=== PATIENT | male | born 1965 | race Caucasian/White ===

== ENCOUNTER 2018-08-22 11:13 | Inpatient (IN) | payer MEDICAID ==
[~2018-08-22] VITALS: Ht 170.2 cm; Wt 81.6 kg
--- NOTE | 2018-08-22 11:13 | NUR ---
PT BIBA BLS TO ER BED 10
[2018-08-22 11:19] VITALS: BP 211/128
[2018-08-22] MEDS ORDERED: NACL 0.9% 1,000 ML IV SCH ×2 (11:35→17:50)
[2018-08-22] MEDS ORDERED: KETOROLAC 30 MG/ML VIAL IVP ONE (11:35)
--- NOTE | 2018-08-22 11:40 | NUR ---
PATIENT PRESENTS TO ED WITH c/o flu like symptoms---bodyaches, fever, chills, fatigue, chills pain to extremities, and dysuria with purulent urine as per pt x 8 days pt picked up from an urent care clinic today admits to be a diabetic and htn but non compliant with meds DENIES N/V/D; SKIN IS PINK/WARM/DRY; AAOX4 LUNGS CLEAR BL; HR EVEN AND REGULAR; PATIENT STATES PAIN OF 10/10 AT THIS TIME; VSS; PATIENT POSITIONED FOR COMFORT; HOB ELEVATED; BEDRAILS UP X2; BED DOWN. ER MD MADE AWARE OF PT STATUS.
[2018-08-22] MEDS ORDERED: KETOROLAC 30 MG/ML VIAL ONE (11:53)
--- NOTE | 2018-08-22 11:53 | NUR ---
CXR COMPLETED--LAB NOTIFIED BLOOD AT BEDSIDE DRAWN
[2018-08-22 12:29] LABS: BASOPHILS % (AUTO) 0.1 % (0.0-2.0); HEMATOCRIT 41.5 % (36-52); HEMOGLOBIN 14.3 g/dL (12.0-18.0); LYMPHOCYTES # (AUTO) 1.2 K/uL (2.0-11.5); LYMPHOCYTES % (AUTO) 5.2 % (20.5-51.1); MEAN CORPUSCULAR HEMOGLOBIN 32 pg (27-31); MEAN CORPUSCULAR HGB CONC 34 g/dL (33-37); MEAN CORPUSCULAR VOLUME 93.5 fL (80-94); MONOCYTES # (AUTO) 1.4 K/uL (0.8-1.0); NEUTROPHILS # (AUTO) 20.1 K/uL (1.8-7.7); NEUTROPHILS % (AUTO) 88.7 % (42.2-75.2); PLATELET COUNT (AUTO) 201 K/uL (140-450); RED BLOOD CELL COUNT(AUTO) 4.44 MIL/uL (4.20-6.10)
[2018-08-22 12:37] LABS: WHITE BLOOD COUNT (AUTO) 22.6 K/uL (4.8-10.8)
[2018-08-22 12:40] LABS: ANION GAP 18.1 (8-16); CARBON DIOXIDE 20.7 mmol/L (21-32); POTASSIUM 3.8 mmol/L (3.5-5.1)
[2018-08-22] MEDS ORDERED: NACL 0.9% 1,000 ML IV ONE (12:50)
[2018-08-22 12:52] LABS: ALBUMIN 3.1 g/dL (3.4-5.0)
[2018-08-22] MEDS ORDERED: LEVOFLOXACIN 500 MG/D5W PREMIX 100 ML IV ONE (12:55)
[2018-08-22 13:05] LABS: TOTAL BILIRUBIN 1.1 mg/dL (0.0-1.0)
[2018-08-22 13:09] LABS: APPEARANCE,URINE HAZY (CLEAR); BILIRUBIN,URINE NEGATIVE (NEGATIVE); BLOOD, URINE 2+ (NEGATIVE); COLOR,URINE YELLOW (YELLOW); LEUKOCYTE ESTERASE ,URINE 2+ (NEGATIVE); NITRITE, URINE POSITIVE (NEGATIVE); UGLUCOSE 3+ (NEGATIVE)
[2018-08-22 13:26] LABS: PROTHROMBIN TIME 11.1 secs (10.8-13.4)
[2018-08-22] MEDS: NACL 0.9% 1,000 ML IV SCH (13:54)
[2018-08-22] MEDS ORDERED: HYDROcodone/APAP 7.5/325 MG 1 TAB PO PRN (13:55)
[2018-08-22] MEDS ORDERED: ONDANSETRON 4 MG/2 ML VIAL IVP PRN (13:55)
[2018-08-22 14:39] LABS: BARBITURATE, URINE NEG. ng/ml (NEG <=200); BENZODIAZEPINE, URINE NEG. ng/mL (NEG <=200); CANNABINOID, URINE NEG. ng/mL (NEG <=50); COCAINE, URINE NEG. ng/mL (NEG <=300); OPIATE, URINE NEG. ng/mL (NEG <=2000); PHENCYCLIDINE SCREEN,URINE NEG. ng/mL (NEG <=25)
[2018-08-22 14:49] LABS: FREE T4 (FREE THYROXINE) 1.76 ng/dL (0.76-1.46); MAGNESIUM 1.9 mg/dL (1.8-2.4); PHOSPHORUS 1.8 mg/dL (2.5-4.9)
[2018-08-22] MEDS ORDERED: ENALAPRILAT 2.5 MG/2 ML VIAL IVP ONE ×2 (15:10→15:55)
[2018-08-22] MEDS ORDERED: ONDANSETRON 4 MG/2 ML VIAL IVP ONE (15:15)
--- NOTE | 2018-08-22 15:15 | NUR ---
EDMD MADE AWARE OF ELEVATED BP AND N/V, DR. SHARMA TO PLACE NEW ORDERS.
[2018-08-22 15:19] LABS: THYROID STIMULATING HORMONE 1.84 uIU/mL (0.34-3.74)
[2018-08-22] MEDS ORDERED: ONDANSETRON 4 MG/2 ML VIAL ONE (15:24)
[2018-08-22] MEDS: ACETAMINOPHEN 325 MG TAB PO PRN (16:13)
--- NOTE | 2018-08-22 16:31 | NUR ---
PT UP TO RESTROOM
--- NOTE | 2018-08-22 16:40 | NUR ---
AMBULATORY WITH STEADY GAIT TO AND FROM RESTROOM---CHARGE IN TELE OKAY TO RECEIVE PT WITH LASTEST VITALS.
[2018-08-22 16:55] VITALS: BP 135/89
--- NOTE | 2018-08-22 16:55 | NUR ---
RECEIVED PT FROM EMERGENCY ROOM NURSE FOR CONTINUITY OF CARE. PT IN STABLE CONDITION. RESPIRATIONS EVEN AND UNLABORED. IV INTACT AND PATENT. BED IN LOW POSITION. CALL LIGHT AT BEDSIDE. WILL CONTINUE TO MONITOR.
--- NOTE | 2018-08-22 16:58 | NUR ---
Pt transferred to Tele via [facility] ; ROOM 122-B REPORT GIVEN TO JOSÉ ANTONIO ROQUE
--- NOTE | 2018-08-22 18:15 | NUR ---
PT LYING IN BED SLEEPING AT THIS TIME. RESPIRATIONS EVEN AND UNLABORED. BED IN LOW POSITION. CALL LIGHT AT BEDSIDE. WILL CONTINUE TO MONITOR.
[2018-08-22 18:16] LABS: ANION GAP 16.3 (8-16); CARBON DIOXIDE 22.4 mmol/L (21-32); CREATININE 0.8 mg/dL (0.7-1.3); POTASSIUM 3.7 mmol/L (3.5-5.1)
[2018-08-22] MEDS: PIPER/TAZO 3.375GM/D5W PREMIX 50 ML IV SCH (18:56)
[2018-08-22] MEDS ORDERED: DEXTROSE 50% 50 ML SYR IVP PRN (19:20)
--- NOTE | 2018-08-22 19:41 | NUR ---
GAVE REPORT TO MULE DRIVER NURSE FOR CONTINUITY OF CARE. PT IN STABLE CONDITION.
--- NOTE | 2018-08-22 19:42 | NUR ---
RECEIVED BEDSIDE REPORT FROM DAY SHIFT RN, PATIENT IN STABLE CONDITION, RESTING IN BED WITH NO SIGNS OF DISTRESS ON RA.
[2018-08-22 20:00] VITALS: BP 149/86
--- NOTE | 2018-08-22 21:42 | NUR ---
USING MYOMO HEAD PAPER TESTER # [id number] I EXPLAINED SCHEDULED MEDICATIONS TO PATIENT. PATIENT AGREED TO BLOOD GLUCOSE CHECK. PATIENT ALSO AGREED TO ADMINISTRATION OF INSULIN, HEPARIN, AND COLACE. PATIENT STATES THAT HE DOES HAVE PAIN BUT DOES NOT WANT ANY MEDICINE FOR PAIN. PATIENT REQUESTS TO USE THE BATHROOM BEFORE TAKING MEDICATIONS. WILL ADMINISTER AT THAT TIME.
[2018-08-22] MEDS: DOCUSATE SODIUM 100 MG GELCAP PO SCH (21:43)
[2018-08-22] MEDS: BLOOD GLUCOSE MONITORING 1 DEV DEV FS SCH (21:53)
[2018-08-22] MEDS: INSULIN LISPRO SLIDING SCALE 100 UNITS/ML VIAL SUBQ PRN (21:56)
--- NOTE | 2018-08-22 22:00 | NUR ---
PATIENT STATED HE HAD DIARRHEA WHEN HE USED THE BATHROOM. COLACE WAS NOT ADMINISTERED. USING Laser View # [id number] I EXPLAINED THAT WE WOULD HOLD THE COLACE AND THAT NEXT TIME HE HAS DIARRHEA TO LET ME SEE IT. PATIENT STATED THAT HE HAD PAIN IN HIS FEET AND SHOULDERS THAT IS AN 8/10 WHEN LAYING STILL NAD A 10/10 WHEN AMBULATING TO THE BATHROOM. I EXPLAINED THAT WE CAN GIVE HIM MEDICATION FOR THE PAIN BUT HE STATED HE DID NOT WANT TO TAKE ANY PAIN MEDICATION.
--- NOTE | 2018-08-22 22:53 | NUR ---
PATIENT HAD A LOOSE SMALL STOOL. PATIENT STATES HE HAS HAD DIARRHEA FOR 10 DAYS. WILL INFORM DOCTOR.
--- NOTE | 2018-08-22 23:26 | NUR ---
MADE DR. MORGAN AWARE THAT PATIENT HAS HAD DIARRHEA FOR 10 DAYS. SHE WILL ORDER C-DIFF STOOL CULTURE. WILL INFORM PATIENT TO NOTIFY US PRIOR TO NEXT BOWEL MOVEMENT. Addendum: 08/23/18 at 0325 by Dora Altamirano RN DR. WALLACE, ELANIE MORGAN
[2018-08-23] VITALS: BP 159/95
--- NOTE | 2018-08-23 | NUR ---
PATIENT SLEEPING. VITALS STABLE. PATIENT ADMITS TO HAVING PAIN BUT IS REFUSING TO TAKE ANY PAIN MEDICATIONS. WILL CONTINUE TO MONITOR
[2018-08-23] MEDS: PIPER/TAZO 3.375GM/D5W PREMIX 50 ML IV SCH ×4 (00:42→17:00)
--- NOTE | 2018-08-23 02:30 | NUR ---
PATIENT AMBULATED TO BATHROOM, PAINFULL TO URINATE AND TO AMBULATE, BUT PATIENT IS STILL REFUSING PAIN MEDICATIONS.
[2018-08-23 04:13] LABS: MEAN CORPUSCULAR HEMOGLOBIN 32 pg (27-31); PLATELET COUNT (AUTO) 188 K/uL (140-450); RED CELL DISTRIBUTION WIDTH 12.9 % (11.6-13.7)
[2018-08-23 04:18] LABS: HEMATOCRIT 38.4 % (36-52); HEMOGLOBIN 13.1 g/dL (12.0-18.0); MEAN CORPUSCULAR HGB CONC 34 g/dL (33-37); MEAN CORPUSCULAR VOLUME 93.6 fL (80-94); RED BLOOD CELL COUNT(AUTO) 4.11 MIL/uL (4.20-6.10); WHITE BLOOD COUNT (AUTO) 24.9 K/uL (4.8-10.8)
[2018-08-23 04:22] LABS: ANION GAP 15.2 (8-16); CARBON DIOXIDE 21.4 mmol/L (21-32); CREATININE 0.8 mg/dL (0.7-1.3); POTASSIUM 3.6 mmol/L (3.5-5.1)
[2018-08-23 04:25] LABS: MAGNESIUM 1.8 mg/dL (1.8-2.4); PHOSPHORUS 2.9 mg/dL (2.5-4.9)
[2018-08-23 04:27] LABS: CHOL/HDL RATIO 2.5 (1-4.5)
[2018-08-23 04:58] LABS: BASOPHILS % (MANUAL) 0 % (0-2); EOSINOPHILS % (MANUAL) 0 % (0-4); LYMPHOCYTES % (MANUAL) 6 % (20-46); MONOCYTES % (MANUAL) 6 % (5-12)
[2018-08-23] MEDS: ACETAMINOPHEN 325 MG TAB PO PRN ×2 (06:20→16:10)
[2018-08-23] MEDS: NACL 0.9% 1,000 ML IV SCH ×3 (06:25→16:19)
--- NOTE | 2018-08-23 06:30 | NUR ---
PATIENT HAS A FEVER, ADMINISTERED PRN MEDICATION. WILL ENDORSE TO DAY SHIFT RN TO FOLLOW UP ON ANTI-PYRETIC.
[2018-08-23] MEDS: LISINOPRIL 10 MG TAB PO SCH (06:38)
[2018-08-23] MEDS: BLOOD GLUCOSE MONITORING 1 DEV DEV FS SCH ×4 (06:39→20:25)
--- NOTE | 2018-08-23 07:14 | NUR ---
GAVE BEDSIDE REPORT TO DAY SHIFT RN. PATIENT ENDORSED IN STABLE CONDITION.
--- NOTE | 2018-08-23 07:15 | NUR ---
PT REPORT RECEIVED FROM FAMILY DAY CARE PROVIDER NURSE AT BEDSIDE. PT IS AWAKE LYING IN BED, NO S/S OF ACUTE DISTRESS OR SOB NOTED. PT IS ON ROOM AIR, SKIN INTACT. IV SITE ON THE L AC, 18 G, INFUSING NS 125 ML/HR. PT IS ON A CCHO DIET. PT IS AMBULATORY AND NOT CONSIDERED A FALL RISK. CALL LIGHT IS WITHIN REACH. WILL CONTINUE TO MONITOR.
[2018-08-23 08:00] VITALS: BP 142/99
--- NOTE | 2018-08-23 08:30 | NUR ---
PATIENT HAS BEEN SCREENED AND CATEGORIZED HIGH NUTRITION RISK. PATIENT WILL BE SEEN WITHIN 1-2 DAYS OF ADMISSION. 08/23/18-08/24/[address]
--- NOTE | 2018-08-23 09:10 | NUR ---
AM MEDS ADMINISTERED, PT TOLERATED WELL. PT'S IS VISITING AT BEDSIDE.
[2018-08-23] MEDS: PANTOPRAZOLE 40 MG INJ VIAL IVP SCH (09:11)
[2018-08-23] MEDS: DOCUSATE SODIUM 100 MG GELCAP PO SCH (09:12)
[2018-08-23] MEDS: SODIUM PHOS / POTASSIUM PHOS 1 PKT PDR PO SCH ×2 (09:15→16:37)
[2018-08-23] MEDS ORDERED: ALBUTEROL SULFATE/IPRATROPIU 3 ML SOL IH PRN (11:45)
[2018-08-23] MEDS ORDERED: LORazepam 1 MG TAB PO SCH (11:47)
--- NOTE | 2018-08-23 11:49 | NUR ---
PT'S BP IS 182/100 AT THIS TIME. O2 SAT IS 98%, BUT HE IS FEELING SHORT OF BREATH AND ANXIOUS. DR SALINAS NOTIFIED. Addendum: 08/23/18 at 1235 by Macy Jefferson RN O2 NC PROVIDED ON 2 L/MIN, AND GIVEN ATIVAN PER MD ORDER. WILL CONTINUE TO MONITOR PT. Addendum: 08/23/18 at 1620 by Macy Jefferson RN AT 13:30 PT'S BP WAS 162/88.
[2018-08-23] MEDS: INSULIN LISPRO SLIDING SCALE 100 UNITS/ML VIAL SUBQ PRN ×3 (11:55→20:33)
[2018-08-23 12:00] VITALS: BP 181/98
--- NOTE | 2018-08-23 13:45 | NUR ---
08/23/18 RD INITIAL ASSESSMENT COMPLETED PLEASE REFER TO NUTRITION ASSESSMENT UNDER CARE ACTIVITY FOR ESTIMATED NUTRITIONAL NEEDS. 1. CONTINUE CCHO 60 GM DIET TOLERATED 2. RD PROVIDED NUTRITION EDUCATION ON HIGH FIBER DIET AND CONSISTENT CARBOHYDRATE COUNTING 3. RD TO FOLLOW-UP 3-5 DAYS, MODERATE RISK WILFREDO DE JESUS, RD
[2018-08-23] MEDS: ALBUTEROL SULFATE/IPRATROPIU 3 ML SOL IH SCH ×2 (15:02→19:48)
--- NOTE | 2018-08-23 15:09 | NUR ---
PT GETTING A BREATHING TX AT THIS TIME
--- NOTE | 2018-08-23 15:17 | NUR ---
DR SALINAS NOTIFIED OF PT'S BLOOD CULTURES POSITIVE FOR GRAM+ COCCI CLUSTERS.
[2018-08-23 16:00] VITALS: BP 163/103
--- NOTE | 2018-08-23 16:15 | NUR ---
PT'S BP IS 163/103 AT THIS TIME, AND TEMP IS 101.8. DR SALINAS IS AWARE. COOLING MEASURES ARE IN PLACE, AND TYLENOL WAS ADMINISTERED. COOLING DOWN THE ROOM TEMP. PT'S IS AT BEDSIDE. WILL CONTINUE TO MONITOR PT.
--- NOTE | 2018-08-23 17:53 | NUR ---
AT THIS TIME, BP IS 163/100 AND TEMP IS 100.0. DR AYALA IS AWARE AND IS GOING TO PLACE ORDERS TO LOWER PT'S BP.
[2018-08-23] MEDS ORDERED: LISINOPRIL 10 MG TAB PO SCH (18:10)
--- NOTE | 2018-08-23 18:15 | NUR ---
ONE EXTRA DOSE OF LISINOPRIL, AND PYRIDIUM WERE ADMINISTERED PER MD ORDER FOR PT'S ELEVATED BP AND DYSURIA. DR AYALA SPOKE TO THE PT ABOUT IMPORTANCE OF PAIN MANAGEMENT AND HOW UNCONTROLLED PAIN CONTRIBUTES TO HIGH BP. (PT HAS BEEN REFUSING PAIN MEDS). PT VERBALIZED UNDERSTANDING.
[2018-08-23] MEDS: PHENAZOPYRIDINE 100 MG TAB PO SCH (18:20)
--- NOTE | 2018-08-23 18:53 | NUR ---
RECHECKED PT'S BP AND TEMP. TEMP IS NORMAL AT 98.4 (ORAL), BP IS 179/104. PT WAS ADMINISTERED A DOSE OF LISINOPRIL WITHIN THE LAST HOUR, ORDERED BY DR AYALA. WILL ENDORSE CLOSE MONITORING OF BP TO THE ACCOUNTING ASSISTANT NURSE.
--- NOTE | 2018-08-23 19:15 | NUR ---
PT ENDORSED TO DIRECTOR GEOTHERMAL OPERATIONS NURSE IN STABLE CONDITION.
--- NOTE | 2018-08-23 19:16 | NUR ---
RECEIVED BEDSIDE REPORT FROM DAY SHIFT RN. PATIENT RESTING IN BED. NO SIGNS OF DISTRESS ON RA. IV RUNNING NS AT 125 ML/HR, BED LOW, SAFETY PRECAUTION IN PLACE, CALL LIGHT IN REACH.
[2018-08-23 20:00] VITALS: BP 155/98
--- NOTE | 2018-08-23 20:36 | NUR ---
ADMINISTERED SCHEDULED MEDICATIONS. PATIENT TOLERATED WELL. PATIENT APPEARS UNCOMFORTABLE AND ADMITS T PAIN BUT REFUSES TO TAKE PAIN MEDIATIONS. WILL CONTINUE TO OFFER PAIN RELIEF, DISTRACTION, AND PROVIDE FOR COMFORT.
--- NOTE | 2018-08-23 22:58 | NUR ---
PATIENT SLEEPING. NO SIGNS OF DISTRESS ON RA. WILL CONTINUE TO MONITOR.
[2018-08-24] VITALS: BP 168/95
[2018-08-24] MEDS: PIPER/TAZO 3.375GM/D5W PREMIX 50 ML IV SCH ×5 (00:03→23:17)
[2018-08-24] MEDS: NACL 0.9% 1,000 ML IV SCH ×2 (00:03→09:05)
--- NOTE | 2018-08-24 00:04 | NUR ---
ADMINISTERED SCHEDULED MEDICATIONS. PATIENT LOOKS IN EXTREME DISCOMFORT. BODY ACHES ARE GETTING WORSE. RIGHT LEG HURTS AND IS HARD TO USE WHEN WALKING. BOTH UPPER EXTREMITIES ARE STIFF AND SORE. PATIENT STILL REFUSING PAIN MEDICATION.
--- NOTE | 2018-08-24 03:15 | NUR ---
SPOKE TO DR. REEDER ABOUT ELEVATED BP 168/95. PATIENT IS GETTING 125 ML/HR AND IS IN PAIN BUT IS REFUSING TO TAKE PAIN MEDICATIONS. DR. REEDER CHANGED RATE OF FLUIDS TO 90 ML/HR. WILL RECHECK VITALS IN ONE HOUR AND REPORT BACK.
[2018-08-24 04:00] VITALS: BP 176/11
[2018-08-24] MEDS ORDERED: KETOROLAC 30 MG/ML VIAL IM PRN ×2 (04:30→12:41)
--- NOTE | 2018-08-24 04:30 | NUR ---
RECHECKED BP. IT IS NOW 176/111, DR. REEDER AWARE. SPOKE WITH THE PATIENT AND EXPLAINED THE BENEFITS OF CONTROLLING PAIN AND THAT PAIN MAY BE AFFECTING HIS BP. PATIENT AGREED TO TAKE PAIN MEDICATIONS. TO PLACE NEW ORDERS.
--- NOTE | 2018-08-24 04:51 | NUR ---
ADMINISTERED PRN PAIN MEDICATION. WILL RECHECK PAIN AND BP IN 30 MINUTES.
--- NOTE | 2018-08-24 05:30 | NUR ---
BP STILL ELEVATED. WILL GIVE 0900 DOES OF LISINOPRIL AND RECHECK BP.
[2018-08-24] MEDS: MORPHINE SULFATE 2 MG/ML SYR IVP PRN (06:17)
[2018-08-24] MEDS: LISINOPRIL 10 MG TAB PO SCH ×2 (06:17→08:39)
--- NOTE | 2018-08-24 06:30 | NUR ---
BP REMAINS ELEVATED. WILL GIVE PRN ANTIHYPERTENSIVE.
[2018-08-24 06:33] LABS: CHLAMYDIA TRACHOMATIS AMP DNA Negative (Negative)
[2018-08-24] MEDS: BLOOD GLUCOSE MONITORING 1 DEV DEV FS SCH ×4 (06:52→20:39)
[2018-08-24] MEDS: ENALAPRILAT 2.5 MG/2 ML VIAL IVP PRN ×2 (06:55→12:35)
[2018-08-24] MEDS: INSULIN LISPRO SLIDING SCALE 100 UNITS/ML VIAL SUBQ PRN ×3 (06:55→17:23)
[2018-08-24 07:03] LABS: BASOPHILS % (AUTO) 0.2 % (0.0-2.0); EOSINOPHILS % (AUTO) 0.1 % (0.0-4.0); HEMATOCRIT 37.9 % (36-52); HEMOGLOBIN 13.3 g/dL (12.0-18.0); LYMPHOCYTES # (AUTO) 1.4 K/uL (2.0-11.5); MEAN CORPUSCULAR HEMOGLOBIN 33 pg (27-31); MEAN CORPUSCULAR HGB CONC 35 g/dL (33-37); MEAN CORPUSCULAR VOLUME 93.7 fL (80-94); MONOCYTES # (AUTO) 1.2 K/uL (0.8-1.0); MONOCYTES % (AUTO) 6.3 % (1.7-9.3); NEUTROPHILS # (AUTO) 17.1 K/uL (1.8-7.7); NEUTROPHILS % (AUTO) 86.4 % (42.2-75.2); PLATELET COUNT (AUTO) 200 K/uL (140-450); RED BLOOD CELL COUNT(AUTO) 4.05 MIL/uL (4.20-6.10); RED CELL DISTRIBUTION WIDTH 12.7 % (11.6-13.7); WHITE BLOOD COUNT (AUTO) 19.8 K/uL (4.8-10.8)
[2018-08-24] MEDS: ALBUTEROL SULFATE/IPRATROPIU 3 ML SOL IH SCH ×3 (07:16→19:00)
--- NOTE | 2018-08-24 07:17 | NUR ---
SATURATION 93-94% ON ROOM AIR POST HHN THERAPY AND RESPIRATORY DRUG PLACED ON SUUPLEMENTAL OXYGEN AT 2 LPM VIA NC
--- NOTE | 2018-08-24 07:30 | NUR ---
GAVE BEDSIDE REPORT TO DAY SHIFT RN. ENDORSED BP RECHECK TO DAY SHIFT. DOCTORS WERE ROUNDING. PATIENT C/0 BLADDER PAIN, DAY SHIT RN TO DO BLADDER SCAN.
--- NOTE | 2018-08-24 07:31 | NUR ---
RECEIVED REPORT FROM ADJUNCT INSTRUCTOR OF WOMEN'S STUDIES NURSE. PT REPORTS PAIN ON URINATION BUT NOT OTHER COMPLAINTS OR OBVIOUS SIGNS OF DISTRESS. IV SITE INTACT AND ASYSMPTOMATIC.
[2018-08-24 07:38] LABS: ANION GAP 14.1 (8-16); CARBON DIOXIDE 22.1 mmol/L (21-32); CREATININE 0.7 mg/dL (0.7-1.3); POTASSIUM 3.2 mmol/L (3.5-5.1)
[2018-08-24 07:50] LABS: MAGNESIUM 1.8 mg/dL (1.8-2.4); PHOSPHORUS 3.1 mg/dL (2.5-4.9)
[2018-08-24 08:00] VITALS: BP 140/97
[2018-08-24] MEDS: DOCUSATE SODIUM 100 MG GELCAP PO SCH ×3 (08:38→20:39)
[2018-08-24] MEDS: PANTOPRAZOLE 40 MG INJ VIAL IVP SCH (08:39)
[2018-08-24] MEDS: SODIUM PHOS / POTASSIUM PHOS 1 PKT PDR PO SCH (08:39)
[2018-08-24] MEDS: PHENAZOPYRIDINE 100 MG TAB PO SCH ×3 (08:45→17:17)
--- NOTE | 2018-08-24 09:45 | NUR ---
PT VOIDED IN THE URINAL, 150ML OUTPUT. CHECKED RESIDUAL URINE WITH BLADDER SCANNER, PT STILL HAS ABOUT 382ML. MADE DR SALINAS AWARE. NO NEW ORDERS AT THIS TIME.
--- NOTE | 2018-08-24 10:53 | NUR ---
PT LAYING IN BED WITH FAMILY AT BEDSIDE. PT AND FAMILY DENY ANY REQUESTS FOR ANYTHING AT THIS TIME. NO COMPLAINTS OF PAIN BY PATIENT AND NO OBVIOUS VISIBLE SIGNS OF ACUTE DISTRESS.
[2018-08-24 11:54] VITALS: BP 183/112
[2018-08-24] MEDS: ACETAMINOPHEN 325 MG TAB PO PRN ×2 (12:34→20:37)
[2018-08-24] MEDS ORDERED: IBUPROFEN 400 MG TAB PO PRN (12:55)
[2018-08-24] MEDS ORDERED: POTASSIUM CHLORIDE 10 MEQ TABER PO SCH (13:00)
--- NOTE | 2018-08-24 14:26 | NUR ---
PT SITTING UP IN BED WITH NO S/S OF DISTRESS, HAD BREATHING TREATMENT AN HOUR AGO. NO COMPLAINTS OF PAIN OR ANY OTHER REQUESTS AT THIS TIME.
[2018-08-24] MEDS ORDERED: amLODIPine 5 MG TAB PO SCH (14:30)
--- NOTE | 2018-08-24 15:50 | NUR ---
PT LAYING IN BED DENIES REQUEST FOR ANYTHING AT THIS TIME WITH NO OBVIOUS SIGNS OF DISTRESS. PATIENT STATES HE HAS PAIN DURING URINATION BUT DENIES NUMERIC RATING TO PAIN AND SHAKES HIS HEAD NO TO ANY MEDICATION OR NEED FOR PAIN MANAGEMENT.
[2018-08-24 15:52] VITALS: BP 157/90
[2018-08-24] MEDS ORDERED: VANCOMYCIN PER PHARMACY MC PRN (16:35)
[2018-08-24] MEDS: metFORMIN 500 MG TAB PO SCH (17:17)
[2018-08-24] MEDS: VANCOMYCIN 1GM/DEXT 5% PREMIX 200 ML IV SCH (17:18)
--- NOTE | 2018-08-24 19:25 | NUR ---
ENDORSED PT TO PACKAGE LIFT OPERATOR RN, PT C/O DIARRHEA, PROVIDED BEDSIDE COMMODE. PT IN STABLE CONDITION.
--- NOTE | 2018-08-24 19:26 | NUR ---
REPORT RECEIVED FROM AM NURSE. PT AWAKE, ALERT AND ORIENTED X4. BREATHING UNLABORED. PT C/O DIARRHEA AND RLE PAIN WHILE AMBULATING. PT REFUSING PAIN MEDICATIONS. BEDSIDE COMMODE IN ROOM. FAMILY AT BEDSIDE. LT AC 18G INTACT. PT HAS FEVER OF 100.5, WILL MEDICATE. SKIN WARM, DRY AND INTACT. CALL LIGHT WITHIN REACH. BED IN LOW POSITION. SAFETY PRECAUTIONS IN PLACE. ALL NEEDS MEET AT THIS TIME.
[2018-08-24 20:10] VITALS: BP 155/95
--- NOTE | 2018-08-24 20:15 | NUR ---
CRITICAL LAB VALUE CALLED IN FOR MRSA OF THE NARES AND URINE. MD NOTIFIED, AWAITING ORDERS
--- NOTE | 2018-08-24 20:37 | NUR ---
TYLENOL GIVEN FOR TEMP OF 100.5
[2018-08-24] MEDS ORDERED: MUPIROCIN CA NASAL 2% 1GM TUBE NS SCH (21:00)
[2018-08-24] MEDS ORDERED: CHLORHEXADINE GLUC 2% CLOTH TP SCH (21:00)
--- NOTE | 2018-08-24 21:37 | NUR ---
REASSESSED PT TEMP. 99.3 AT THIS TIME
--- NOTE | 2018-08-24 22:30 | NUR ---
PT SLEEPING IN BED, EASILY AROUSABLE. NO C/O OF PAIN. NO VISIBLE SIGNS OF DISTRESS.
[2018-08-25 00:06] VITALS: BP 121/78
[2018-08-25] MEDS: VANCOMYCIN 1GM/DEXT 5% PREMIX 200 ML IV SCH ×2 (00:12→08:48)
--- NOTE | 2018-08-25 00:12 | NUR ---
BRIAN GAMEZ AND RUNNING. PT TOLERATING WELL.
--- NOTE | 2018-08-25 00:45 | NUR ---
PT AWAKE, LAYING IN BED. NO C/O OF DISCOMFORT. RESPIRATIONS EVEN, UNLABORED AND WNL.
[2018-08-25] MEDS: NACL 0.9% 1,000 ML IV SCH ×2 (02:09→22:56)
--- NOTE | 2018-08-25 02:15 | NUR ---
PT CONSTANTLY GETTING UP TO USE THE RESTROOM. NO S/S OF DISTRESS NOTED. WILL CONTINUE TO MONITOR.
--- NOTE | 2018-08-25 04:15 | NUR ---
PT SLEEPING BUT AROUSABLE. NO S/S OF DISTRESS NOTED. NO C/O PAIN. NO SOB. AFEBRILE. WILL CONTINUE TO MONITOR.
[2018-08-25] MEDS ORDERED: KETOROLAC 30 MG/ML VIAL IVP SCH (05:30)
--- NOTE | 2018-08-25 05:31 | NUR ---
TORADOL GIVEN FOR PAIN. PT TOLERATED WELL.
[2018-08-25] MEDS: BLOOD GLUCOSE MONITORING 1 DEV DEV FS SCH ×4 (06:12→20:32)
[2018-08-25] MEDS: INSULIN LISPRO SLIDING SCALE 100 UNITS/ML VIAL SUBQ PRN ×4 (06:13→20:39)
[2018-08-25] MEDS: PIPER/TAZO 3.375GM/D5W PREMIX 50 ML IV SCH ×2 (06:17→11:59)
--- NOTE | 2018-08-25 06:17 | NUR ---
GRACIELA HUNG AND RUNNING. PT TOLERATING WELL. BS 251. 9 UNITS OF HUMALOG GIVEN.
[2018-08-25 06:44] LABS: BASOPHILS % (AUTO) 0.1 % (0.0-2.0); EOSINOPHILS % (AUTO) 0.1 % (0.0-4.0); HEMATOCRIT 38.7 % (36-52); HEMOGLOBIN 13.1 g/dL (12.0-18.0); LYMPHOCYTES % (AUTO) 5.9 % (20.5-51.1); MEAN CORPUSCULAR HEMOGLOBIN 32 pg (27-31); MEAN CORPUSCULAR HGB CONC 34 g/dL (33-37); MEAN CORPUSCULAR VOLUME 93.9 fL (80-94); MONOCYTES # (AUTO) 1.2 K/uL (0.8-1.0); NEUTROPHILS # (AUTO) 14.7 K/uL (1.8-7.7); NEUTROPHILS % (AUTO) 86.9 % (42.2-75.2); PLATELET COUNT (AUTO) 223 K/uL (140-450); RED BLOOD CELL COUNT(AUTO) 4.13 MIL/uL (4.20-6.10)
[2018-08-25 06:55] LABS: ANION GAP 13.4 (8-16); CARBON DIOXIDE 23.1 mmol/L (21-32); CREATININE 0.8 mg/dL (0.7-1.3); POTASSIUM 3.5 mmol/L (3.5-5.1)
[2018-08-25] MEDS: ALBUTEROL SULFATE/IPRATROPIU 3 ML SOL IH SCH ×3 (07:00→20:15)
[2018-08-25 07:07] LABS: MAGNESIUM 2.1 mg/dL (1.8-2.4); PHOSPHORUS 3.2 mg/dL (2.5-4.9)
--- NOTE | 2018-08-25 07:27 | NUR ---
REPORT GIVEN TO AM NURSE AT BEDSIDE. PT IN STABLE CONDITION.
--- NOTE | 2018-08-25 07:30 | NUR ---
RECEIVED BEDSIDE REPORT FROM COMMISSARY OFFICER NURSE. PT IN STABLE CONDITION, AAOX4. RESPIRATION EVEN AND UNLABORED IN ROOM AIR. IV NOTED TO THE LEFT AC, 18G., PATENT AND ASYMPTOMATIC. ALL SAFETY MEASURES IN PLACE. BED IN LOWEST POSITION. CALL LIGHT WITHIN REACH. WILL CONTINUE TO MONITOR.
[2018-08-25 08:00] VITALS: BP 151/94
--- NOTE | 2018-08-25 08:01 | NUR ---
VITALS TAKEN, POC DISCUSSED, PT VERBALIZED UNDERSTANDING.
--- NOTE | 2018-08-25 08:27 | NUR ---
PATIENT HAD REFUSED BREATHING TX. SAID HE WAS NOT FEELING ANY SOB OR LIKE HE NEEDED HHN. PATIENT SOUND CLEAR AND DID NOT LOOK ANY DISTRESS. WILL CONTINUE TO MONITOR PATIENT
[2018-08-25] MEDS: PHENAZOPYRIDINE 100 MG TAB PO SCH ×3 (08:47→17:18)
[2018-08-25] MEDS: PANTOPRAZOLE 40 MG INJ VIAL IVP SCH (08:47)
[2018-08-25] MEDS: LISINOPRIL 10 MG TAB PO SCH (08:47)
[2018-08-25] MEDS: DOCUSATE SODIUM 100 MG GELCAP PO SCH ×3 (08:48→21:00)
[2018-08-25] MEDS: metFORMIN 500 MG TAB PO SCH ×2 (08:48→16:36)
[2018-08-25] MEDS ORDERED: amLODIPine 5 MG TAB PO SCH (09:00)
[2018-08-25] MEDS: MUPIROCIN CA NASAL 2% 1GM TUBE NS SCH (09:04)
[2018-08-25] MEDS: CHLORHEXADINE GLUC 2% CLOTH TP SCH (09:45)
--- NOTE | 2018-08-25 12:20 | NUR ---
PT HAD LUNCH, RESTING IN BED, NO S/S OF ACUTE DISTRESS IN ROOM AIR.
[2018-08-25] MEDS: ENALAPRILAT 2.5 MG/2 ML VIAL IVP PRN (12:50)
--- NOTE | 2018-08-25 13:19 | NUR ---
PATIENT REFUSED BREATHING TX, SAID HE DOES NOT FEEL ANY SOB, PATIENT DOES NOT LOOK IN ANY RESPIRATORY DISTRESS, WILL CONTINUE TO MONITOR
[2018-08-25 16:00] VITALS: BP 176/108
[2018-08-25] MEDS ORDERED: hydrALAZINE 20 MG/ML VIAL IVP SCH (16:15)
[2018-08-25] MEDS: VANCOMYCIN 1,250 MG in DEXTROSE 5% 250 ML IV SCH (17:17)
--- NOTE | 2018-08-25 17:55 | NUR ---
NOTIFIED TO MD AYALA, PT BP 169/102, HR 114 AFTER ADMINISTERING HYDRALAZINE 5 MG IVP.PT ALSO C/O OF HAVING CHILLS AND SHIVERING AND STATES HE FEELS HOT LATER. TEMPERATURE 98.9 ORAL. ORDERED TYLENOL AND PROVIDE MORE BLANKETS. WILL CONTINUE TO MONITOR.
[2018-08-25] MEDS: ACETAMINOPHEN 325 MG TAB PO PRN (17:59)
--- NOTE | 2018-08-25 18:19 | NUR ---
RENAL US DONE AT BEDSIDE. WILL CONTINUE TO MONITOR.
--- NOTE | 2018-08-25 18:50 | NUR ---
US KIDNEY DONE, PT STARTING EATING DINNER. INSULIN 3 UNITS GIVEN FOR COVERAGE.
--- NOTE | 2018-08-25 19:00 | NUR ---
RECEIVED PATIENT ON ROOM AIR. FAMILY AT BEDSIDE. PATIENT EATING DINNER, WOULD LIKE TO TAKE BREATHING TREATMENT AFTER MEAL. WILL RETURN AT LATER TIME FOR BREATHING TREATMENT.
--- NOTE | 2018-08-25 19:17 | NUR ---
GAVE ENDORSEMENT TO DISABILITY RATER NURSE. PT IS STABLE AT THIS TIME.
--- NOTE | 2018-08-25 19:18 | NUR ---
RECEIVED BEDSIDE REPORT FROM DAY SHIFT NURSESTEPHEN. PT IN STABLE CONDITION. RESPIRATION EVEN AND UNLABORED IN ROOM AIR. IV SITE ON THE LEFT AC, 18G., RUNNING NS @50MLS/HR. PATENT AND ASYMPTOMATIC. ALL SAFETY MEASURES IN PLACE. BED IN LOWEST POSITION. CALL LIGHT WITHIN REACH. WILL CONTINUE TO MONITOR.
--- NOTE | 2018-08-25 20:03 | NUR ---
HEPARIN GIVEN MD ORDERED. PT TOLERATED WELL. COLACE HELD DUE TO SEVERE DIARRHEA. BS CHECKED, 255, WILL ADMINISTER INSULIN ACCORDING TO SLIDING SCALE.
--- NOTE | 2018-08-25 20:22 | NUR ---
RECEIVED PATIENT ON ROOM AIR, PULSE OX SAT 98%. BREATH SOUNDS CLEAR. PATIENT REFUSING BREATHING TREATMENT AT THIS TIME. RN NOTIFIED. NO RESPIRATORY DISTRESS NOTED. WILL CONTINUE TO MONITOR.
--- NOTE | 2018-08-25 20:39 | NUR ---
HUMALOG INSULIN 9 UNITS GIVEN MD ORDERED. PT TOLERATED WELL. BED IN LOW POSITION, CALL LIGHT WITHIN REACH. WILL CONTINUE TO MONITOR.
--- NOTE | 2018-08-25 23:00 | NUR ---
USING REHABILITATION CENTER MANAGER SYSTEM, #[id number], PT C/O SEVERE PAIN, 01/[address] WALLACE AWARE. WILL MEDICATE.
[2018-08-26] VITALS: BP 140/88
[2018-08-26] MEDS ORDERED: KETOROLAC 30 MG/ML VIAL IM SCH
--- NOTE | 2018-08-26 | NUR ---
VS CHECKED, WITHIN PT'S BASELINE. VANCOMYCIN IVPB AND TORADOL IV PUSH GIVEN MD ORDERED. PT TOLERATED WELL. WILL CONTINUE TO MONITOR.
[2018-08-26 01:51] VITALS: BP 140/88
--- NOTE | 2018-08-26 02:32 | NUR ---
PT SLEEPING IN BED. NO S/S OF SOB NOTED. BREATHING EVEN AND UNLABORED. BED IN LOW POSITION. CALL LIGHT WITHIN REACH.
--- NOTE | 2018-08-26 04:05 | NUR ---
PT SLEEPING IN BED COMFORTABLY. PT IN STABLE CONDITION. NO S/S OF ANY DISCOMFORT. WILL CONTINUE TO MONITOR.
[2018-08-26] MEDS: BLOOD GLUCOSE MONITORING 1 DEV DEV FS SCH ×4 (05:31→20:44)
--- NOTE | 2018-08-26 05:31 | NUR ---
BS CHECKED, 168. WILL ADMINISTER INSULIN DR. SHOEMAKER.
[2018-08-26] MEDS: INSULIN LISPRO SLIDING SCALE 100 UNITS/ML VIAL SUBQ PRN ×3 (05:43→20:47)
--- NOTE | 2018-08-26 05:43 | NUR ---
GIVEN INSULIN BASED ON SLIDING SCALE DR. HOROWITZ PT TOLERATED WELL.
[2018-08-26] MEDS: ALBUTEROL SULFATE/IPRATROPIU 3 ML SOL IH SCH ×3 (06:28→20:40)
--- NOTE | 2018-08-26 07:27 | NUR ---
ENDORSED PT TO DAY SHIFT NURSE. PT IN STABLE CONDITION.
--- NOTE | 2018-08-26 07:28 | NUR ---
RECEIVED ENDORSEMENT FROM LAWYER PROBATE NURSE. RESPIRATIONS ARE EVEN AND UNLABORED ON ROOM AIR. AAOX4, PERSIAN SPEAKING. DENIES PAIN AT THIS TIME. LEFT AC 18 G IV NOTED, INTACT, PATENT, AND INFUSING IVF. STATES THAT HE HAD DIARRHEA THIS MORNING. PLAN OF CARE WAS REVIEWED WITH PT. PT VERBALIZED UNDERSTANDING. SAFETY MEASURE IN PLACE, CALL LIGHT WITHIN REACH. WILL CONTINUE TO MONITOR.
[2018-08-26 07:55] LABS: BASOPHILS % (AUTO) 0.1 % (0.0-2.0); EOSINOPHILS % (AUTO) 0.3 % (0.0-4.0); HEMATOCRIT 37.7 % (36-52); HEMOGLOBIN 12.9 g/dL (12.0-18.0); MEAN CORPUSCULAR HEMOGLOBIN 32 pg (27-31); MEAN CORPUSCULAR HGB CONC 34 g/dL (33-37); MEAN CORPUSCULAR VOLUME 93.2 fL (80-94); MONOCYTES # (AUTO) 0.9 K/uL (0.8-1.0); MONOCYTES % (AUTO) 6.2 % (1.7-9.3); NEUTROPHILS # (AUTO) 11.8 K/uL (1.8-7.7); PLATELET COUNT (AUTO) 240 K/uL (140-450); RED BLOOD CELL COUNT(AUTO) 4.05 MIL/uL (4.20-6.10); RED CELL DISTRIBUTION WIDTH 13.4 % (11.6-13.7); WHITE BLOOD COUNT (AUTO) 13.8 K/uL (4.8-10.8)
[2018-08-26 08:00] VITALS: BP 161/103
[2018-08-26 08:02] LABS: ANION GAP 13.2 (8-16); CARBON DIOXIDE 23.8 mmol/L (21-32); CREATININE 0.6 mg/dL (0.7-1.3)
[2018-08-26 08:09] LABS: PHOSPHORUS 3.9 mg/dL (2.5-4.9)
[2018-08-26] MEDS: MUPIROCIN CA NASAL 2% 1GM TUBE NS SCH (08:40)
[2018-08-26] MEDS: amLODIPine 5 MG TAB PO SCH (08:41)
[2018-08-26] MEDS: VANCOMYCIN 1,250 MG in DEXTROSE 5% 250 ML IV SCH ×4 (08:41→17:33)
[2018-08-26] MEDS: PANTOPRAZOLE 40 MG INJ VIAL IVP SCH (08:42)
[2018-08-26] MEDS: metFORMIN 500 MG TAB PO SCH ×3 (08:42→16:34)
[2018-08-26] MEDS: LISINOPRIL 20 MG TAB PO SCH (08:42)
[2018-08-26] MEDS: CHLORHEXADINE GLUC 2% CLOTH TP SCH (08:43)
[2018-08-26] MEDS: DOCUSATE SODIUM 100 MG GELCAP PO SCH ×2 (08:43→20:50)
--- NOTE | 2018-08-26 08:55 | NUR ---
ADMINISTERED SCHEDULED MEDICATIONS. PATIENT DENIES PAIN AT THIS TIME. WILL CONTINUE TO MONITOR.
[2018-08-26] MEDS ORDERED: LISINOPRIL 20 MG TAB PO SCH (09:00)
[2018-08-26 09:25] LABS: LYMPHOCYTES % (AUTO) 7.6 % (20.5-51.1); NEUTROPHILS % (AUTO) 85.8 % (42.2-75.2)
[2018-08-26] MEDS ORDERED: POTASSIUM CHLORIDE 10 MEQ TABER PO SCH (10:54)
--- NOTE | 2018-08-26 11:00 | NUR ---
DR. AYALA WAS MADE AWARE PATIENT STILL HAS DIARRHEA
[2018-08-26] MEDS ORDERED: HYDROCHLOROTHIAZIDE 25 MG TAB PO SCH (11:13)
[2018-08-26 11:30] VITALS: BP 151/97
--- NOTE | 2018-08-26 11:56 | NUR ---
ADMINISTERED SCHEDULED MEDS. PT AAOX4. NO SIGNS OF DISTRESS NOTED. FAMILY IS PRESENT AT BEDSIDE. DENIES PAIN AT THIS TIME. WILL CONTINUE TO MONITOR.
--- NOTE | 2018-08-26 12:00 | NUR ---
SMALL EMESIS X1. ADMINISTERED PRN ZOFRAN. WILL CONTINUE TO MONITOR.
[2018-08-26] MEDS: MORPHINE SULFATE 2 MG/ML SYR IVP PRN ×2 (12:36→16:35)
--- NOTE | 2018-08-26 14:15 | NUR ---
PATIENT WAS AWAKE, ALERT. RESPIRATION EVEN, UNLABOR ON ROOM AIR. NO DISTRESS NOTED AT THIS TIME. FAMILY AT BEDSIDE
[2018-08-26 16:00] VITALS: BP 161/103
--- NOTE | 2018-08-26 16:00 | NUR ---
GAVE ICE PACK TO PT, TEMP 99.8. WILL REASESS.
--- NOTE | 2018-08-26 16:15 | NUR ---
ADMINISTERED SCHEDULED MEDICATIONS. PATIENT C/O OF GENERALIZED PAIN AT 8/10. ADMINISTERED MORPHINE. WILL CONTINUE TO MONITOR.
--- NOTE | 2018-08-26 17:15 | NUR ---
TEMP 97.5. PT C/O OF NO CHILLS OR PAIN. WILL CONTINUE TO MONITOR.
--- NOTE | 2018-08-26 17:29 | NUR ---
OK TO CONTINUE TO CURRENT DOSE OF VANCOMYCIN PER PHARMACIST
[2018-08-26 18:00] VITALS: BP 135/83
--- NOTE | 2018-08-26 18:20 | NUR ---
PATIENT WAS AWAKE, ALERT, EATING DINNER COMFORTABLY. RESPIRATION EVEN, UNLABOR ON ROOM AIR. IV PATENT AND INTACT. NO DISTRESS NOTED AT THIS TIME
--- NOTE | 2018-08-26 19:35 | NUR ---
ENDORSEMENT GIVEN TO FASHION PHOTOGRAPHER NURSE. PATIENT IS STABLE AT THIS TIME
--- NOTE | 2018-08-26 19:36 | NUR ---
RECEIVED ENDORSEMENT FROM AM SHIFT NURSE. RESPIRATIONS ARE EVEN AND UNLABORED ON ROOM AIR. AAOX4, SCOTTISH SPEAKING. DENIES PAIN AT THIS TIME. LEFT AC 18 G IV NOTED, INTACT, PATENT, AND INFUSING IVF. PLAN OF CARE WAS REVIEWED WITH PT. PT VERBALIZED UNDERSTANDING. SAFETY MEASURE IN PLACE, CALL LIGHT WITHIN REACH. WILL CONTINUE TO MONITOR.
--- NOTE | 2018-08-26 21:00 | NUR ---
MEDS GIVEN, TOLERATING WELL
[2018-08-26] MEDS: NACL 0.9% 1,000 ML IV SCH (22:09)
[2018-08-27] VITALS: BP 148/69
[2018-08-27] MEDS: VANCOMYCIN 1,250 MG in DEXTROSE 5% 250 ML IV SCH ×3 (01:16→17:00)
--- NOTE | 2018-08-27 02:50 | NUR ---
PT WENT TO THE BATHROOM, ABLE TO AMBULATE
--- NOTE | 2018-08-27 03:30 | NUR ---
FEBRILE AT 100.8 WILL GIVE TYLENOL PRN ORDERED. PT FEELS WARM TO TOUCH
[2018-08-27] MEDS: ACETAMINOPHEN 325 MG TAB PO PRN (03:31)
[2018-08-27 04:00] VITALS: BP 148/69
[2018-08-27] MEDS: BLOOD GLUCOSE MONITORING 1 DEV DEV FS SCH ×4 (05:45→20:57)
[2018-08-27] MEDS: INSULIN LISPRO SLIDING SCALE 100 UNITS/ML VIAL SUBQ PRN ×3 (06:07→21:02)
[2018-08-27] MEDS: PANTOPRAZOLE 40 MG TABEC PO SCH (06:12)
[2018-08-27] MEDS ORDERED: PANTOPRAZOLE 40 MG TABEC PO SCH (06:30)
--- NOTE | 2018-08-27 06:48 | NUR ---
PT TEMP WENT DOWN TO 99. 5, HR 99 WILL CONTINUE TO MONITOR.
[2018-08-27] MEDS: ALBUTEROL SULFATE/IPRATROPIU 3 ML SOL IH SCH ×3 (07:00→19:00)
--- NOTE | 2018-08-27 07:20 | NUR ---
ENDORSED TO AM SHIFT FOR CONTINUITY OF CARE PT IN STABLE CONDITION AT THIS TIME. NO PAIN NO SOB AT THIS TIME
--- NOTE | 2018-08-27 07:30 | NUR ---
RECEIVED HANDOFF REPORT FROM HUMAN RESOURCE MANAGEMENT INSTRUCTOR NURSE PT IS AWAKE AND APPEARS STABLE AND IN NO APPARENT DISTRESS. ALL SAFETY MEASURES ARE IN PLACE WILL CONTINUE TO MONITOR.
[2018-08-27 07:44] LABS: BASOPHILS % (AUTO) 0.1 % (0.0-2.0); EOSINOPHILS % (AUTO) 0.3 % (0.0-4.0); HEMATOCRIT 37.7 % (36-52); HEMOGLOBIN 12.9 g/dL (12.0-18.0); LYMPHOCYTES # (AUTO) 1.2 K/uL (2.0-11.5); MEAN CORPUSCULAR HEMOGLOBIN 32 pg (27-31); MEAN CORPUSCULAR HGB CONC 34 g/dL (33-37); MEAN CORPUSCULAR VOLUME 92.6 fL (80-94); MONOCYTES # (AUTO) 1.1 K/uL (0.8-1.0); MONOCYTES % (AUTO) 8.3 % (1.7-9.3); NEUTROPHILS # (AUTO) 10.6 K/uL (1.8-7.7); PLATELET COUNT (AUTO) 267 K/uL (140-450); RED BLOOD CELL COUNT(AUTO) 4.07 MIL/uL (4.20-6.10)
[2018-08-27 07:55] LABS: ANION GAP 13.9 (8-16); CREATININE 0.8 mg/dL (0.7-1.3)
[2018-08-27 08:03] LABS: MAGNESIUM 1.9 mg/dL (1.8-2.4); PHOSPHORUS 4.1 mg/dL (2.5-4.9)
--- NOTE | 2018-08-27 08:13 | NUR ---
PT BRIAN ALVA 16.1 (HIGH) CALLED AND SPOKE TO PHARMACIST. THEY SAID IT IS OK TO GIVE.
[2018-08-27 08:20] LABS: POTASSIUM 2.9 mmol/L (3.5-5.1)
[2018-08-27 08:41] LABS: LYMPHOCYTES % (AUTO) 9.1 % (20.5-51.1); NEUTROPHILS % (AUTO) 82.2 % (42.2-75.2)
[2018-08-27] MEDS: MUPIROCIN CA NASAL 2% 1GM TUBE NS SCH (09:00)
[2018-08-27] MEDS: CHLORHEXADINE GLUC 2% CLOTH TP SCH (09:00)
[2018-08-27] MEDS: metFORMIN 500 MG TAB PO SCH ×3 (09:01→17:00)
[2018-08-27] MEDS: LISINOPRIL 20 MG TAB PO SCH (09:01)
[2018-08-27] MEDS: DOCUSATE SODIUM 100 MG GELCAP PO SCH ×2 (09:02→20:58)
[2018-08-27] MEDS: amLODIPine 5 MG TAB PO SCH (09:03)
[2018-08-27] MEDS: HYDROCHLOROTHIAZIDE 25 MG TAB PO SCH (09:03)
[2018-08-27] MEDS ORDERED: POTASSIUM CHLORIDE 40 MEQ, LIDOCAINE MPF 1% - 5 mL VIAL 25 MG in NACL 0.9% 250 ML IV SCH (10:00)
--- NOTE | 2018-08-27 10:46 | NUR ---
FREQUENT ROUNDING PT IS STABLE AND IN NO APPARENT DISTRESS, ALL SAFETY MEASURES ARE IN PLACE WILL CONTINUE TO MONITOR.
--- NOTE | 2018-08-27 13:06 | NUR ---
FREQUENT ROUNDING PT IS STABLE AND IN NO APPARENT DISTRESS ALL SAFETY MEASURES ARE IN PLACE WILL CONTINUE TO MONITOR.
[2018-08-27] MEDS ORDERED: POTASSIUM CHLORIDE 10 MEQ TABER PO SCH (14:19)
[2018-08-27] MEDS ORDERED: FINASTERIDE 5 MG TAB PO SCH (14:19)
[2018-08-27] MEDS ORDERED: TAMSULOSIN 0.4 MG CAP PO SCH (14:20)
[2018-08-27 16:00] VITALS: BP 167/95
--- NOTE | 2018-08-27 16:15 | NUR ---
FREQUENT ROUNDING PT IS STABLE AND IN NO APPARENT DISTRESS ALL SAFETY MEASURES ARE IN PLACE WILL CONTINUE TO MONITOR.
--- NOTE | 2018-08-27 19:42 | NUR ---
ENDORSED PT TO SURVEYING CREW STAKE RUNNER NURSE, PT IS STABLE AND IN NO APPARENT DISTRESS. ALL SAFETY MEASURES ARE IN PLACE, WILL CONTINUE TO MONITOR.
--- NOTE | 2018-08-27 19:43 | NUR ---
RECEIVED BEDSIDE REPORT FROM DAY SHIFT NURSE. PT IN STABLE CONDITION. RESPIRATION EVEN AND UNLABORED IN ROOM AIR. IV SITE ON THE LEFT AC, 18G, PATENT AND ASYMPTOMATIC. ALL SAFETY MEASURES IN PLACE. BED IN LOWEST POSITION. CALL LIGHT WITHIN REACH. WILL CONTINUE TO MONITOR.
--- NOTE | 2018-08-27 20:57 | NUR ---
BS CHECKED, 209. WILL ADMINISTER INSULIN MD ORDERED.
--- NOTE | 2018-08-27 21:03 | NUR ---
GIVEN HEPARIN, COLACE, INSULIN. PT TOLERATED WELL. BED IN LOW POSITION, CALL LIGHT WITHIN REACH. WILL CONTINUE TO MONITOR.
[2018-08-27] MEDS: NACL 0.9% 1,000 ML IV SCH (22:09)
--- NOTE | 2018-08-27 23:15 | NUR ---
PT SLEEPING IN BED. NO S/S SOB OR ANY RESPIRATORY DISTRESS NOTED. BREATHING EVEN AND UNLABORED. WILL CONTINUE TO MONITOR.
[2018-08-28] VITALS: BP 136/83
[2018-08-28] MEDS: VANCOMYCIN 1,250 MG in DEXTROSE 5% 250 ML IV SCH ×3 (00:24→17:19)
--- NOTE | 2018-08-28 02:54 | NUR ---
PT SLEEPING IN BED COMFORTABLY. NO S/S OF ACUTE DISTRESS NOTED. RESPIRATION EVEN AND UNLABORED. BED IN LOW POSITION, CALL LIGHT WITHIN REACH.
--- NOTE | 2018-08-28 05:20 | NUR ---
PT URINATED IN BED. CLEAN BED AND CHANGE PT. PT TOLERATED WELL. BED IN LOW POSITION. CALL LIGHT WITHIN REACH. WILL CONTINUE TO MONITOR.
[2018-08-28] MEDS: PANTOPRAZOLE 40 MG TABEC PO SCH (06:08)
[2018-08-28] MEDS: BLOOD GLUCOSE MONITORING 1 DEV DEV FS SCH ×4 (06:09→21:37)
[2018-08-28] MEDS: INSULIN LISPRO SLIDING SCALE 100 UNITS/ML VIAL SUBQ PRN ×2 (06:12→21:44)
--- NOTE | 2018-08-28 06:12 | NUR ---
PROTONIX GIVEN DR. ORDERED. BS CHECKED. 191. INSULIN GIVEN MD ORDERED. PT TOLERATED WELL. WILL CONTINUE TO MONITOR.
[2018-08-28 06:23] LABS: BASOPHILS % (AUTO) 0.1 % (0.0-2.0); EOSINOPHILS % (AUTO) 0.3 % (0.0-4.0); HEMATOCRIT 38.8 % (36-52); HEMOGLOBIN 13.3 g/dL (12.0-18.0); LYMPHOCYTES # (AUTO) 1.2 K/uL (2.0-11.5); LYMPHOCYTES % (AUTO) 8.9 % (20.5-51.1); MEAN CORPUSCULAR HEMOGLOBIN 32 pg (27-31); MEAN CORPUSCULAR HGB CONC 34 g/dL (33-37); MONOCYTES # (AUTO) 1.3 K/uL (0.8-1.0); MONOCYTES % (AUTO) 9.2 % (1.7-9.3); NEUTROPHILS % (AUTO) 81.5 % (42.2-75.2); PLATELET COUNT (AUTO) 270 K/uL (140-450); RED BLOOD CELL COUNT(AUTO) 4.18 MIL/uL (4.20-6.10); RED CELL DISTRIBUTION WIDTH 13.2 % (11.6-13.7); WHITE BLOOD COUNT (AUTO) 13.6 K/uL (4.8-10.8)
[2018-08-28 06:42] LABS: CARBON DIOXIDE 26.4 mmol/L (21-32); CREATININE 0.8 mg/dL (0.7-1.3); POTASSIUM 3.4 mmol/L (3.5-5.1)
[2018-08-28 06:54] LABS: MAGNESIUM 1.9 mg/dL (1.8-2.4); PHOSPHORUS 4.2 mg/dL (2.5-4.9)
--- NOTE | 2018-08-28 07:29 | NUR ---
ENDORSED PT TO DAY SHIFT NURSEWILD. PT IN STABLE CONDITION.
--- NOTE | 2018-08-28 07:30 | NUR ---
RECEIVED REPORT FROM ASSISTANT BANQUET MANAGER NURSE VANNESSA FOR CONTINUITY OF CARE. PT IN STABLE CONDITION. RESPIRATIONS EVEN AND UNLABORED. IV INTACT AND PATENT. SAFETY MEASURES IN PLACE. CALL LIGHT AT BEDSIDE. BED IN LOW POSITION. WILL CONTINUE TO MONITOR.
[2018-08-28 08:00] VITALS: BP 143/89
[2018-08-28] MEDS: metFORMIN 850 MG TAB PO SCH ×3 (09:25→17:19)
[2018-08-28] MEDS: FINASTERIDE 5 MG TAB PO SCH (09:26)
[2018-08-28] MEDS: DOCUSATE SODIUM 100 MG GELCAP PO SCH ×2 (09:26→21:37)
[2018-08-28] MEDS: amLODIPine 5 MG TAB PO SCH (09:26)
[2018-08-28] MEDS: TAMSULOSIN 0.4 MG CAP PO SCH (09:26)
[2018-08-28] MEDS: LISINOPRIL 20 MG TAB PO SCH (09:27)
[2018-08-28] MEDS: HYDROCHLOROTHIAZIDE 25 MG TAB PO SCH (09:27)
[2018-08-28] MEDS: CHLORHEXADINE GLUC 2% CLOTH TP SCH (09:38)
--- NOTE | 2018-08-28 09:38 | NUR ---
GAVE ORDERED DUE MEDICATIONS AT THIS TIME. PT TOLERATED WELL. WILL CONTINUE TO MONITOR.
--- NOTE | 2018-08-28 11:06 | NUR ---
CONSENT SIGNED USING AIRCRAFT LANDING GEAR INSPECTOR [id number] FOR TRANS-ESOPHAGEAL ECHOCARDIOGRAM.
[2018-08-28] MEDS ORDERED: fentaNYL 0.05 MG/ML VIAL ONE (11:29)
[2018-08-28] MEDS ORDERED: MIDAZOLAM 2 MG/2 ML VIAL ONE (11:29)
[2018-08-28] MEDS ORDERED: BENZOCAINE 20% 57 GM CAN MC ONE (11:42)
[2018-08-28] MEDS ORDERED: LIDOCAINE VISCOUS 2% 20 ML UDC ONE (11:42)
--- NOTE | 2018-08-28 11:44 | NUR ---
PT OFF UNIT FOR GIRISH. PT IN STABLE CONDITION.
--- NOTE | 2018-08-28 12:43 | NUR ---
PT BACK ON UNIT AFTER GIRISH PROCEDURE.
[2018-08-28] MEDS: PHENAZOPYRIDINE 100 MG TAB PO SCH ×2 (14:14→20:01)
[2018-08-28] MEDS: MUPIROCIN CA NASAL 2% 1GM TUBE NS SCH (14:14)
--- NOTE | 2018-08-28 15:10 | NUR ---
08/28/18 RD FOLLOW UP COMPLETED PLEASE REFER TO NUTRITION ASSESSMENT UNDER CARE ACTIVITY FOR ESTIMATED NUTRITIONAL NEEDS. 1. CONTINUE NPO MEDICALLY NECESSARY 2. START CCHO 60 GM DIET WHEN MEDICALLY APPROPRIATE 3. RD TO FOLLOW-UP 3-5 DAYS, MODERATE RISK WILFREDO DE JESUS, RD
--- NOTE | 2018-08-28 15:33 | NUR ---
PT LYING IN BED IN STABLE CONDITION. WILL CONTINUE TO MONITOR.
[2018-08-28 16:00] VITALS: BP 134/84
--- NOTE | 2018-08-28 17:25 | NUR ---
PT LYING IN BED IN STABLE CONDITION. WILL CONTINUE TO MONITOR.
--- NOTE | 2018-08-28 19:25 | NUR ---
GAVE REPORT TO WELDER FITTER APPRENTICE NURSE FOR CONTINUITY OF CARE. PT IN STABLE CONDITION.
--- NOTE | 2018-08-28 19:26 | NUR ---
RECEIVED BEDSIDE REPORT FROM DAY SHIFT RNWILD. PATIENT IN STABLE CONDITION. NO SIGNS OF DISTRESS ON RA. SAFETY PRECAUTIONS IN PLACE. IV INFUSING TO LEFT AC 18G.
--- NOTE | 2018-08-28 20:49 | NUR ---
AWAKE AND ALERT C/O SOB WAREHOUSE ASSOCIATE ATTEMPTED TO GIVE PRN HHN THERAPY THEN PATIENT REFUSED
--- NOTE | 2018-08-28 21:37 | NUR ---
ADMINISTERED SCHEDULED MEDICATIONS. NO C/O PAIN AT THIS TIME. NO SIGNS OF DISTRESS ON RA.
[2018-08-28] MEDS: NACL 0.9% 1,000 ML IV SCH (21:52)
[2018-08-29] VITALS: BP 156/93
[2018-08-29] MEDS: VANCOMYCIN 1,250 MG in DEXTROSE 5% 250 ML IV SCH (00:50)
--- NOTE | 2018-08-29 00:50 | NUR ---
ADMINISTERED SCHEDULED MEDICATIONS. PATIENT WAS SLEEPING BUT AWOKE EASILY. NO C/O PAIN AT THIS TIME. VITALS STABLE.
--- NOTE | 2018-08-29 02:58 | NUR ---
PATIENT SLEEPING. NO SIGNS OF DISTRESS ON RA. WILL CONTINUE TO MONITOR.
--- NOTE | 2018-08-29 04:30 | NUR ---
PATIENT AMBULATED TO BATHROOM. STEADY GAIT. NO SIGNS OF DISTRESS.
[2018-08-29 06:13] LABS: BASOPHILS % (AUTO) 0.3 % (0.0-2.0); EOSINOPHILS # (AUTO) 0.1 K/uL (0-0.4); EOSINOPHILS % (AUTO) 0.5 % (0.0-4.0); HEMATOCRIT 37.5 % (36-52); HEMOGLOBIN 12.9 g/dL (12.0-18.0); LYMPHOCYTES # (AUTO) 1.6 K/uL (2.0-11.5); LYMPHOCYTES % (AUTO) 11.5 % (20.5-51.1); MEAN CORPUSCULAR HEMOGLOBIN 32 pg (27-31); MEAN CORPUSCULAR HGB CONC 34 g/dL (33-37); MONOCYTES # (AUTO) 1.6 K/uL (0.8-1.0); MONOCYTES % (AUTO) 11.5 % (1.7-9.3); NEUTROPHILS # (AUTO) 10.6 K/uL (1.8-7.7); NEUTROPHILS % (AUTO) 76.2 % (42.2-75.2); PLATELET COUNT (AUTO) 281 K/uL (140-450); RED BLOOD CELL COUNT(AUTO) 4.04 MIL/uL (4.20-6.10); WHITE BLOOD COUNT (AUTO) 13.8 K/uL (4.8-10.8)
[2018-08-29 06:34] LABS: ANION GAP 9.9 (8-16); CARBON DIOXIDE 28.1 mmol/L (21-32); CREATININE 1.5 mg/dL (0.7-1.3)
[2018-08-29] MEDS: PANTOPRAZOLE 40 MG TABEC PO SCH (06:38)
[2018-08-29] MEDS: BLOOD GLUCOSE MONITORING 1 DEV DEV FS SCH ×4 (06:42→20:17)
[2018-08-29] MEDS: INSULIN LISPRO SLIDING SCALE 100 UNITS/ML VIAL SUBQ PRN ×3 (06:44→20:28)
[2018-08-29 06:47] LABS: PHOSPHORUS 4.8 mg/dL (2.5-4.9)
--- NOTE | 2018-08-29 07:15 | NUR ---
GAVE BEDSIDE REPORT TO DAY SHIFT RN, PATIENT IN STABLE CONDITION.
--- NOTE | 2018-08-29 07:17 | NUR ---
RECEIVED BEDSIDE REPORT FROM BENCH WORKER APPRENTICE NURSE FOR CONTINUITY OF CARE. PATIENT IS RESTING ON BED AT THIS TIME. PATIENT IS AOX4. SPEAKS AZERI, ABLE TO FOLLOW SIMPLE COMMANDS AND MAKE NEEDS KNOWN. DENIES PAIN AND SOB. RESPIRATION EVEN AND UNLABORED. ON RA. NO SIGNS OF DISTRESS NOTED. IV ON L AC 18G, INTACT AND CLEAN, INFUSING 10ML/HR NS. SKIN INTACT AND CLEAN.URANAL IS BY BEDSIDE AND COMMODE IS BY BEDSIDE. INSTRUCTED PATIENT TO USE THE CALL LIGHT FOR ANY ASSISTANCE AND PATIENT WAS AWARE. BED IN LOW POSITION AND CALL LIGHT WITHIN REACH.
[2018-08-29 08:00] VITALS: BP 117/71
[2018-08-29 08:15] VITALS: BP 93/63
--- NOTE | 2018-08-29 08:20 | NUR ---
CHECKED PATIENT'S BP AND RECEIVED 93/63, MAP 69. DR RAWLS AT BEDSIDE. PER DR RAWLS, HE WILL ORDER IVF FOR LOW BP.
[2018-08-29] MEDS ORDERED: NACL 0.9% 1,000 ML IV SCH (08:35)
[2018-08-29] MEDS: HYDROCHLOROTHIAZIDE 25 MG TAB PO SCH (09:00)
[2018-08-29] MEDS: amLODIPine 5 MG TAB PO SCH (09:00)
[2018-08-29] MEDS: LISINOPRIL 20 MG TAB PO SCH (09:00)
--- NOTE | 2018-08-29 09:25 | NUR ---
CONTACTED PICC LINE SERVICE, SPOKE WITH BENNY, STATED ABIMBOLA-PICC LINE NURSE WILL CALL FOR ETA. WILBERT NURSE DELORIS MADE AWARE.
[2018-08-29] MEDS: POTASSIUM CHLORIDE 10 MEQ TABER PO SCH (09:41)
[2018-08-29] MEDS: DOCUSATE SODIUM 100 MG GELCAP PO SCH ×2 (09:41→20:21)
[2018-08-29] MEDS: metFORMIN 850 MG TAB PO SCH (09:42)
[2018-08-29] MEDS: FINASTERIDE 5 MG TAB PO SCH (09:42)
[2018-08-29] MEDS: TAMSULOSIN 0.4 MG CAP PO SCH (09:42)
[2018-08-29] MEDS: PHENAZOPYRIDINE 100 MG TAB PO SCH ×3 (09:43→18:25)
[2018-08-29] MEDS: MUPIROCIN CA NASAL 2% 1GM TUBE NS SCH (09:49)
[2018-08-29] MEDS: CHLORHEXADINE GLUC 2% CLOTH TP SCH (09:50)
--- NOTE | 2018-08-29 09:55 | NUR ---
ADMINISTERED MEDS PER MD ORDER, PATIENT TOLERATED WELL. HOLD BP MEDS DUE TO LOW BP. FAMILY IS AT BEDSIDE. NO SIGNS OF DISTRESS NOTED. BED IN LOW POSITION AND CALL LIGHT WITHIN REACH.
--- NOTE | 2018-08-29 10:05 | NUR ---
DR RAWLS WAS TALKING TO PATIENT AND FAMILY MEMBER LOU. DR RAWLS EXPLAINED TO PATIENT AND LOU WHY A PICC LINE IS NECESSARY AND RISKS AND BENEFITS.
--- NOTE | 2018-08-29 10:11 | NUR ---
CALLED PICC LINE SERVICE AND LEFT A MESSAGE FOR [facility] THAT CONSENT HAVE BEEN OBTAINED AND CALL BACK NUMBERS.
[2018-08-29 10:15] VITALS: BP 151/80
[2018-08-29] MEDS ORDERED: HYDROcodone/APAP 7.5/325 MG 1 TAB PO PRN (12:40)
--- NOTE | 2018-08-29 13:24 | NUR ---
ADMINISTERED MEDS PER MD ORDER, PATIENT TOLERATED WELL. PATIENT IS SITTING UP ON BED AND EATING DINNER. DENIES PAIN AND SOB. NO SIGNS OF DISTRESS NOTED. FAMILY MEMBER LOU IS BY BEDSIDE AND TALKING TO PATIENT. SAFETY MEASURES IN PLACE. BED IN LOW POSITION AND CALL LIGHT WITHIN REACH.
--- NOTE | 2018-08-29 15:25 | NUR ---
PATIENT IS RESTING ON BED AT THIS TIME, NO SIGNS OF DISTRESS NOTED. SAFETY MEASURES IN PLACE. BED IN LOW POSITION AND CALL LIGHT WITHIN REACH.
[2018-08-29 16:00] VITALS: BP 144/89
[2018-08-29] MEDS ORDERED: POTASSIUM CHLORIDE 40 MEQ, LIDOCAINE MPF 1% - 5 mL VIAL 25 MG in NACL 0.9% 250 ML IV SCH (16:00)
--- NOTE | 2018-08-29 18:26 | NUR ---
ADMINISTERED MED PER MD ORDER, PATIENT TOLERATED WELL. PATIENT IS SITTING UP ON BED, NO SIGNS OF DISTRESS NOTED. SAFETY MEASURES IN PLACE. BED IN LOW POSITION AND CALL LIGHT WITHIN REACH.
--- NOTE | 2018-08-29 19:13 | NUR ---
ENDORSED PATIENT AT BEDSIDE TO DIE SIZER NURSE FOR CONTINUITY OF CARE. PATIENT'S VISITORS ARE BY BEDSIDE. INSTRUCTED VISITORS TO PUT ON PPE AT ALL TIME IN PATIENT'S ROOM. PATIENT IS TALKING VISITORS AT BEDSIDE. PATIENT IS IN A STABLE CONDITION.
--- NOTE | 2018-08-29 19:30 | NUR ---
RECEIVED BEDSIDE REPORT FROM JUDE ATKINS, ON CONTACT PRECAUTIONS FOR MRSA NARES, PATIENT SITTING ON CHAIR, ON FALL RISK PRECAUTIONS, GRAPHICS MANAGER ASSISTING PATIENT FROM CHAIR TO BED. PATIENT HAS UNSTEADY GAIT C/O OF FEELING DIZZY WHEN WALKING, NEEDS ONE PERSON ASSISTANCE WHEN WALKING. PLACED BED ALARM ON. IV IN LEFT AC 18 G INFUSING KCL AT 68 ML/HR. RIGHT UPPER ARM PICC, DOUBLE LUMEN, DRESSING INTACT. EXPLAINED PLAN OF CARE. WILL CONTINUE TO MONITOR.
[2018-08-29] MEDS: NACL 0.9% 1,000 ML IV SCH (20:17)
--- NOTE | 2018-08-29 20:30 | NUR ---
DUE MEDICATIONS GIVEN, BG 206 MEDICATED ACCORDING TO SLIDING SCALE.
--- NOTE | 2018-08-29 23:15 | NUR ---
SLEEPING IN BED NO SIGNS OF DISTRESS, BED ALARM ON, WILL CONTINUE TO MONITOR
[2018-08-30] VITALS: BP 122/81
--- NOTE | 2018-08-30 00:30 | NUR ---
V/S TAKEN ALL WITHIN BASELINE, PATIENT DENIES PAIN, BED ALARM ON
--- NOTE | 2018-08-30 04:05 | NUR ---
PATIENT ASLEEP IN BED WILL CONTINUE TO MONITOR, BED ALARM ON
[2018-08-30] MEDS: PANTOPRAZOLE 40 MG TABEC PO SCH (05:40)
[2018-08-30] MEDS: BLOOD GLUCOSE MONITORING 1 DEV DEV FS SCH ×4 (05:40→21:13)
[2018-08-30] MEDS: INSULIN LISPRO SLIDING SCALE 100 UNITS/ML VIAL SUBQ PRN ×3 (05:44→17:12)
--- NOTE | 2018-08-30 05:59 | NUR ---
DUE MEDICATIONS GIVEN
[2018-08-30 06:48] LABS: BASOPHILS % (AUTO) 0.2 % (0.0-2.0); EOSINOPHILS # (AUTO) 0.1 K/uL (0-0.4); EOSINOPHILS % (AUTO) 0.7 % (0.0-4.0); HEMATOCRIT 37.8 % (36-52); LYMPHOCYTES # (AUTO) 1.3 K/uL (2.0-11.5); LYMPHOCYTES % (AUTO) 10.4 % (20.5-51.1); MEAN CORPUSCULAR HEMOGLOBIN 32 pg (27-31); MEAN CORPUSCULAR HGB CONC 35 g/dL (33-37); MEAN CORPUSCULAR VOLUME 92.8 fL (80-94); MONOCYTES # (AUTO) 1.3 K/uL (0.8-1.0); MONOCYTES % (AUTO) 10.7 % (1.7-9.3); NEUTROPHILS # (AUTO) 9.5 K/uL (1.8-7.7); PLATELET COUNT (AUTO) 263 K/uL (140-450); RED BLOOD CELL COUNT(AUTO) 4.08 MIL/uL (4.20-6.10); RED CELL DISTRIBUTION WIDTH 12.7 % (11.6-13.7); WHITE BLOOD COUNT (AUTO) 12.2 K/uL (4.8-10.8)
--- NOTE | 2018-08-30 07:20 | NUR ---
ENDORSED PATIENT TO DAY SHIFT NURSE, PATIENT STABLE.
--- NOTE | 2018-08-30 07:21 | NUR ---
RECEIVED ENDORSEMENT FROM POWER HAIR CLIPPER NURSE. PT IS AAOX4, CROATIAN SPEAKING. RESPIRATIONS ARE EVEN AND UNLABORED ON ROOM. DENIES PAIN AT THIS TIME. RIGHT UPPER PICC INTACT. LEFT AC 18 G IV INTACT, PATENT AND INFUSING IVF. PLAN OF CARE WAS REVIEWED WITH PT. PT VERBALIZED UNDERSTANDING. SAFETY MEASURES IN PLACE, CALL LIGHT WITHIN REACH. WILL CONTINUE TO MONITOR.
[2018-08-30 07:29] LABS: ANION GAP 14.8 (8-16); CARBON DIOXIDE 22.6 mmol/L (21-32); CREATININE 1.4 mg/dL (0.7-1.3); POTASSIUM 3.4 mmol/L (3.5-5.1)
[2018-08-30 08:00] VITALS: BP 132/89
[2018-08-30] MEDS: POTASSIUM CHLORIDE 10 MEQ TABER PO SCH (08:54)
[2018-08-30] MEDS: TAMSULOSIN 0.4 MG CAP PO SCH (08:55)
[2018-08-30] MEDS: FINASTERIDE 5 MG TAB PO SCH (08:55)
[2018-08-30] MEDS: DOCUSATE SODIUM 100 MG GELCAP PO SCH ×3 (08:55→21:12)
[2018-08-30] MEDS: PHENAZOPYRIDINE 100 MG TAB PO SCH ×3 (08:56→17:12)
[2018-08-30] MEDS: HYDROCHLOROTHIAZIDE 25 MG TAB PO SCH (08:56)
[2018-08-30] MEDS: amLODIPine 5 MG TAB PO SCH (08:57)
[2018-08-30] MEDS: LISINOPRIL 20 MG TAB PO SCH (09:20)
--- NOTE | 2018-08-30 09:20 | NUR ---
ADMINISTERED SCHEDULED MEDICATIONS. PT DENIES ANY PAIN AT THIS TIME. REINFORCED TO USE CALL LIGHT FOR ASSISTANCE. WILL CONTINUE TO MONITOR
[2018-08-30 09:39] LABS: MAGNESIUM 2.1 mg/dL (1.8-2.4); PHOSPHORUS 4.1 mg/dL (2.5-4.9)
[2018-08-30] MEDS: VANCOMYCIN 1,250 MG in DEXTROSE 5% 250 ML IV SCH (10:34)
[2018-08-30] MEDS ORDERED: FINA5TAB5 PO (11:19)
[2018-08-30] MEDS ORDERED: ORE25 PO (11:19)
[2018-08-30] MEDS ORDERED: AMLO5TAB6 PO (11:19)
[2018-08-30] MEDS ORDERED: Vancomycin Per Pharmacy MC (11:19)
[2018-08-30] MEDS ORDERED: METF500T PO (11:23)
[2018-08-30] MEDS ORDERED: LOSA50TA66 PO (11:23)
--- NOTE | 2018-08-30 11:30 | NUR ---
PT RESTING IN BED. NO C/O AT THIS TIME.
--- NOTE | 2018-08-30 12:52 | NUR ---
DR. SALINAS AT BEDSIDE OF 124B, PT'S SPOUSE. VERIFIED PTS PHARMACY. PER DR. SALINAS WILL BE GETTING HOME HEALTH CARE UPON DISCHARGE TO HOME.
--- NOTE | 2018-08-30 14:43 | NUR ---
Belt Sander Note: Patient's face sheet indicates patient has [facility] Presumptive Eligibility and there is also a document in medical record that shows Medi-Merlin is good thru 10/15/18. I faxed inquiry to [facility], fax number . I called and spoke with Clair from [facility]. She stated she checked patient's Medi-Merlin eligibility benefits it indicates it is not active. I informed both and of above information. Home Health services cannot be arranged at this time since patient does not have insurance. Addendum: 08/30/18 at 1504 by Roxanne DOYLE I informed Director For Beauty School Rosa I was told by [employer] [facility] [place] patient's Medi-Merlin is not active. Per Luma, patient's Medi-Merlin is not active at this time. Addendum: 08/30/18 at 1505 by [facility] Addendum: 08/31/18 at 1036 by Roxanne Smith SS Late entry for 08/30/18: Per Annie from [facility] , they cannot accept Medi-Merlin petal health for abx ivs referral. Per Caity from [facility] they cannot accept Medi-Merlin petal health for abx ivs referral. Per Caity from [facility] they cannot accept Medi-Merlin home health for abx ivs referral, does not have staffing. Per Magdalena from [facility] , they don't accept Medi-Merlin referrals. Per Anil from [facility] , they don't have staffing available, unable to accept referral.
[2018-08-30] MEDS ORDERED: POTASSIUM CHLORIDE 10 MEQ TABER PO SCH (15:00)
--- NOTE | 2018-08-30 15:26 | NUR ---
ADMINISTERED SCHEDULED MEDICATIONS. RADIUS CORNER MACHINE OPERATOR AT BEDSIDE. PT DENIES ANY PAIN AT THIS TIME.
--- NOTE | 2018-08-30 15:30 | NUR ---
Boring Machine Set Up Operator Note: Patient's face sheet indicates patient's date of is [birth year]. However, when I met with patient at bedside. He speaks Khmer. He told me his date of is [birth year]. I called and spoke with Rachel at [facility] , I provided her with patient's date of [birth year]. She stated patient's Medi-Merlin is active using this date of brith [birth year]. I informed Veterinary Meat Inspector Luma patient told me his date of is [birth year]. Lmua checked patient's Medi-Merlin with date of 67 and it is active. I called and spoke with Clair from [facility] and provided her with patient's correct date of . She confirmed they are able to accept referral and will provide nursing staff to teach patient iv needs and will visit patient 3 times. I confirmed with patient he is willing and able to learn abx iv needs. He is aware home health nursing staff will not be able to go to his home daily. He reported he also has a son (15 year old) who can assist him with abx iv at home, Clair from [facility] made aware. Clair stated they will send a nurse to patient's home tomorrow, she is aware [facility] will deliver Vanco to patient's home tomorrow. Per Rachel from [facility] they will deliver Vanco to patient's home tomorrow, she is aware last dose was given this morning 10:34am. I confirmed with patient his home address [address] [place] [id number]. Per Wood Cut Engraver Loreta, test center administrator Iman approved for patient to come to our Emergency Room for blood draw for Vanco trough and results will be faxed to [facility], I notified Director of Emergency Room Dept of Sandhya Rdz and Director of Lab dept Bree Romero of this via e-mail. I spoke with patient's son Jim and provided him with [facility]'s and [facility]'s phone numbers. I also told him to patient is supposed to come to our Emergency Room for blood draw for Vanco trough and will call him tomorrow to let him know when he is supposed to come our Emergency Room. Per , patient does not need physical therapy.
[2018-08-30 16:00] VITALS: BP 121/73
--- NOTE | 2018-08-30 16:00 | NUR ---
NOTIFIED PT PER DR. AYALA THAT D/C WILL BE TOMORROW AND HOME HEALTH WILL COME TO THE HOME.
--- NOTE | 2018-08-30 19:25 | NUR ---
ENDORSED TO EXPERIMENTAL PSYCHOLOGIST. PT IS STABLE.
--- NOTE | 2018-08-30 19:26 | NUR ---
RECD. RESTING IN BED, AWAKE, A/OX4. RESPIRATION EVEN AND UNLABORED. IV OF NS TKO INFUSING RIGHT UPPER ARM PICC LINE. REMINDED PATIENT TO USE CALL LIGHT TO CALL NURSE WHENEVER NEEDING HELP. VERBALIZED UNDERSTANDING. DENIES PAIN 0/10.
--- NOTE | 2018-08-30 19:26 | NUR ---
Patient's Plan of Care was discussed and reviewed with FUEL CELL REPAIRER: ISHA LOUIS. WILL CONTINUE TO MONITOR.
--- NOTE | 2018-08-30 21:13 | NUR ---
DUE PO MEDICATIONS GIVEN. SNACK FOR THE NIGHT GIVEN. DR. ESPINOSA CAME AND CHECKED PATIENT, NO NEW ORDERS MADE.
[2018-08-30] MEDS: NACL 0.9% 1,000 ML IV SCH (22:09)
[2018-08-31] VITALS: BP 139/81
--- NOTE | 2018-08-31 | NUR ---
SLEEPING COMFORTABLY IN BED.
[2018-08-31] MEDS: VANCOMYCIN 1,250 MG in DEXTROSE 5% 250 ML IV SCH (04:01)
--- NOTE | 2018-08-31 04:01 | NUR ---
VANCO TROUGH - 9.7. VANCOMYCIN 1250 MG. IVPB INFUSED BY JUDE SOLO.
[2018-08-31] MEDS: PANTOPRAZOLE 40 MG TABEC PO SCH (05:37)
[2018-08-31] MEDS: BLOOD GLUCOSE MONITORING 1 DEV DEV FS SCH ×2 (05:56→11:30)
--- NOTE | 2018-08-31 06:04 | NUR ---
BS -196, REFUSED INSULIN COVERAGE, STATED INSULIN MAKES HIM FEEL MORE WEAKER. NO BM FOR TWO DAYS NOW, HAD VERY SMALL BM THIS MORNING BUT COMPLAINED VERY DIFFICULT FOR HIM TO PASSED STOOL. INFORMED DR. STALLINGS, WILL ORDER STOOL SOFTENER, AWARE OF PT REFUSING INSULIN COVERAGE.
[2018-08-31 06:52] LABS: BASOPHILS % (AUTO) 0.3 % (0.0-2.0); EOSINOPHILS # (AUTO) 0.1 K/uL (0-0.4); EOSINOPHILS % (AUTO) 0.8 % (0.0-4.0); HEMATOCRIT 40.3 % (36-52); HEMOGLOBIN 13.6 g/dL (12.0-18.0); LYMPHOCYTES # (AUTO) 1.5 K/uL (2.0-11.5); LYMPHOCYTES % (AUTO) 10.9 % (20.5-51.1); MAGNESIUM 1.7 mg/dL (1.8-2.4); MEAN CORPUSCULAR HEMOGLOBIN 31 pg (27-31); MEAN CORPUSCULAR HGB CONC 34 g/dL (33-37); MEAN CORPUSCULAR VOLUME 93.2 fL (80-94); MONOCYTES # (AUTO) 1.2 K/uL (0.8-1.0); MONOCYTES % (AUTO) 8.7 % (1.7-9.3); NEUTROPHILS # (AUTO) 11.3 K/uL (1.8-7.7); NEUTROPHILS % (AUTO) 79.3 % (42.2-75.2); PHOSPHORUS 3.7 mg/dL (2.5-4.9); PLATELET COUNT (AUTO) 282 K/uL (140-450); RED BLOOD CELL COUNT(AUTO) 4.33 MIL/uL (4.20-6.10); RED CELL DISTRIBUTION WIDTH 12.8 % (11.6-13.7); WHITE BLOOD COUNT (AUTO) 14.2 K/uL (4.8-10.8)
--- NOTE | 2018-08-31 06:59 | NUR ---
CONDITION REMAIN STABLE. NO COMPLAINT OF PAIN DURING SHIFT. SAFETY MAINTAINED DURING SHIFT. WILL ENDORSE TO AM NURSE FOR CONTINUITY OF CARE.
[2018-08-31 07:11] LABS: ANION GAP 13.1 (8-16); CARBON DIOXIDE 23.7 mmol/L (21-32); CREATININE 1.4 mg/dL (0.7-1.3); POTASSIUM 3.8 mmol/L (3.5-5.1)
--- NOTE | 2018-08-31 07:18 | NUR ---
RECEIVED REPORT FROM PROJECT ANALYST NURSE ISHA FOR CONTINUITY OF CARE. PT IN STABLE CONDITION. PICC LINE INTACT AND PATENT. ROOM AIR. SAFETY MEASURES IN PLACE. CALL LIGHT AT BEDSIDE. BED IN LOW POSITION. WILL CONTINUE TO MONITOR.
[2018-08-31 08:00] VITALS: BP 102/59
[2018-08-31] MEDS: LISINOPRIL 20 MG TAB PO SCH (09:00)
[2018-08-31] MEDS: amLODIPine 5 MG TAB PO SCH (09:00)
[2018-08-31] MEDS: HYDROCHLOROTHIAZIDE 25 MG TAB PO SCH (09:00)
[2018-08-31] MEDS: FINASTERIDE 5 MG TAB PO SCH (09:22)
[2018-08-31] MEDS: POTASSIUM CHLORIDE 10 MEQ TABER PO SCH (09:22)
[2018-08-31] MEDS: TAMSULOSIN 0.4 MG CAP PO SCH (09:22)
[2018-08-31] MEDS: DOCUSATE SODIUM 100 MG GELCAP PO SCH (09:22)
--- NOTE | 2018-08-31 09:29 | NUR ---
GAVE ORDERED DUE MEDICATIONS AT THIS TIME. PT TOLERATED WELL. WILL CONTINUE TO MONITOR. BED IN LOW POSITION. CALL LIGHT AT BEDSIDE.
--- NOTE | 2018-08-31 12:25 | NUR ---
PT LYING IN BED SLEEPING AT THIS TIME IN STABLE CONDITION. RESPIRATIONS EVEN AND UNLABORED. WILL CONTINUE TO MONITOR. CALL LIGHT AT BEDSIDE. BED IN LOW POSITION.
[2018-08-31] MEDS: INSULIN LISPRO SLIDING SCALE 100 UNITS/ML VIAL SUBQ PRN (12:35)
--- NOTE | 2018-08-31 15:30 | NUR ---
PT SITTING IN ROOM 124B VISITING WITH HIS . PT IN STABLE CONDITION. RESPIRATIONS EVEN AND UNLABORED. WILL CONTINUE TO MONITOR. CALL LIGHT AT BEDSIDE. BED IN LOW POSITION.
--- NOTE | 2018-08-31 15:32 | NUR ---
Concrete Gun Operator Note: Late entry for 08/30/18: I met with patient at bedside. He speaks Estonian. He stated he lives at home with his significant other Macy Coronel and their children. Prior to hospital admission patient was independent with ADLs and was not using any DME at home. He does not have a pcp at this time. I emphasized to him the importance of following up with a physician post discharge. He stated he would. No questions nor concerns were reported by patient.
--- NOTE | 2018-08-31 16:15 | NUR ---
GAVE DISCHARGE INSTRUCTIONS TO PT AND FAMILY MEMBER (/SON). PT VERBALIZED UNDERSTANDING OF DISCHARGE INSTRUCTIONS AND VERBALIZED UNDERSTANDING OF INSTRUCTIONS TO COME TO EMERGENCY ROOM AT 3PM ON 09/01/2018 FOR BLOOD DRAW. ID BAND REMOVED. PT WAS WHEELED TO LOBBY IN STABLE CONDITION WHERE ELDEST SON WAS WAITING WITH CAR.
== END 2018-08-31 16:15 | disposition home or self-care (01) | DRG 720 ==
LOC: MED 11:13 → MTU 13:58 → EDBD 13:58
PROVIDERS: ADMIT General Practice; ATTEND General Practice
PROC: 02HV33Z Insertion of Infusion Device into Superior Vena Cava, Percutaneous Approach (ICD-10-PCS; principal; 2018-08-29)
PROC: B548ZZA Ultrasonography of Superior Vena Cava, Guidance (ICD-10-PCS; 2018-08-29)
DX: A41.02 Sepsis due to Methicillin resistant Staphylococcus aureus (principal); N17.0 Acute kidney failure with tubular necrosis; E11.10 Type 2 diabetes mellitus with ketoacidosis without coma; E44.0 Moderate protein-calorie malnutrition; J18.9 Pneumonia, unspecified organism; E83.39 Other disorders of phosphorus metabolism; N39.0 Urinary tract infection, site not specified; R65.20 Severe sepsis without septic shock; I16.0 Hypertensive urgency; E87.1 Hypo-osmolality and hyponatremia; J98.11 Atelectasis; E11.65 Type 2 diabetes mellitus with hyperglycemia; E87.6 Hypokalemia; I10 Essential (primary) hypertension; Z68.25 Body mass index [BMI] 25.0-25.9, adult; Z91.19 Patient's noncompliance with other medical treatment and regimen
CPT/HCPCS: 36415; 70450; 71045; 80048; 80053; 80202; 80305; 81001; 82150; 82948; 83036; 83605; 83690; 83735; 83880; 84100; 84439; 84443; 84484; 85025; 85610; 85730; 87040; 87070; 87081; 87086; 87186; 87491; 87804; 93005; 93313; 93976; 94640; 96361; 96365; 96375; 96376; 97110; 97116; 97161-GP; 97530; 99291; C9113; J0360; J1644; J1815; J1885; J1956; J2001; J2250; J2270; J2405; J2543; J3010; J3370; J3480; J3490; J7030; J7060; J7620; Q0092

== ENCOUNTER 2018-09-02 11:23 | Emergency (ER) | payer MEDICAID ==
[~2018-09-02] VITALS: Ht 170.2 cm; Wt 75.7 kg
[~2018-09-02 11:23] MED LIST: AMLO5TAB6 PO; FINA5TAB5 PO; LOSA50TA66 PO; METF500T PO; ORE25 PO; Vancomycin Per Pharmacy MC
[2018-09-02 11:30] VITALS: BP 100/67
--- NOTE | 2018-09-02 11:36 | NUR ---
PT BIB FAMILY FOR LAB DRAW. PT REPORTS THAT HE NEEDS LABS DRAWN ON 07/02 FOR VANCO TROUGH AND RENAL PANEL AT 1500. PT WAS UNABLE TO MAKE IT YESTERDAY. PT WAS DISCHARGED FROM OUR HOSPITAL HX---[facility] RX---VANCOMYCIN
[2018-09-02 13:32] VITALS: BP 147/109
--- NOTE | 2018-09-02 13:32 | NUR ---
Patient discharged with v/s stable. ER NOTIFIED ABOUT HIGH BP. Written and verbal after care instructions given and explained. Patient verbalized understanding. Ambulatory with steady gait. All questions addressed prior to discharge. Advised to follow up with PMD. Addendum: 09/02/18 at 1333 by DONAVON PT GIVEN COPY OF LABS
== END 2018-09-02 13:32 | disposition home or self-care (01) ==
LOC: MED 11:23
DX: J18.9 Pneumonia, unspecified organism (principal); E11.9 Type 2 diabetes mellitus without complications; I10 Essential (primary) hypertension; Z01.812 Encounter for preprocedural laboratory examination; Z79.84 Long term (current) use of oral hypoglycemic drugs; Z79.899 Other long term (current) drug therapy
CPT/HCPCS: 36415; 80202; 99283

== ENCOUNTER 2018-09-06 09:16 | Emergency (ER) | payer MEDICAID ==
[~2018-09-06] VITALS: Ht 170.2 cm; Wt 76.3 kg
[2018-09-06 09:27] VITALS: BP 144/84
--- NOTE | 2018-09-06 09:30 | NUR ---
[facility] in [facility] - 09/06/18 at 0935 by [email or web address] pt ambulated to bed 8
--- NOTE | 2018-09-06 09:40 | NUR ---
PT BIB FAMILY TO THE ED FOR VANCO TROUGH TEST. PER FAMILY, PT WAS ADMITTED HERE ON 08/20/18 FOR PNA AND SEPSIS. PT WAS GETTING VAMCOMYCIN. PT STATES LITTLE NAUSEA. DENIES VOMITING OR DIARRHEA AT THIS TIME. DENIES ANY RECENT FEVER. STATES PAIN ONLY DURING URINATION. NO BLOOD IN URINE. DENIES OTHER PROBLEM AT THIS TIME. HAS PICC LINE ON KRYSTLE. INTACT DRESSING.
--- NOTE | 2018-09-06 09:48 | NUR ---
PT EVALUATED BY TOBI PAYNE.
[2018-09-06 11:18] VITALS: BP 146/96
--- NOTE | 2018-09-06 11:18 | NUR ---
Patient discharged with v/s stable. Written and verbal after care instructions given and explained. Patient verbalized understanding. Ambulatory with steady gait. All questions addressed prior to discharge. Advised to follow up with PMD, made aware of appointment tommorrow. Resource packet provided.
== END 2018-09-06 11:18 | disposition home or self-care (01) ==
LOC: MED 09:16
DX: R11.0 Nausea (principal); R30.0 Dysuria; E11.9 Type 2 diabetes mellitus without complications; I10 Essential (primary) hypertension; Z01.812 Encounter for preprocedural laboratory examination; Z79.84 Long term (current) use of oral hypoglycemic drugs; Z79.899 Other long term (current) drug therapy
CPT/HCPCS: 36415; 80202; 81002; 99283

== ENCOUNTER 2018-09-08 12:50 | Inpatient (IN) | payer MEDICAID ==
[~2018-09-08] VITALS: Ht 162.6 cm; Wt 76.7 kg
[2018-09-08 12:58] VITALS: BP 142/92
--- NOTE | 2018-09-08 13:20 | NUR ---
PT AMBULATED TO ED BED 09
--- NOTE | 2018-09-08 13:46 | NUR ---
PT BIB C/O VOMITTING AND ABDOMINAL PAIN X 3 DAYS. PT ADMITTED AT [facility] FOR PNEUMONIA, UTI, SEPSIS D/C 09/06/17. CONTINUE ON VANCO AT HOME, PICC LINE TO RT UPPER ARM. HX.HTN, DM. SKIN IS INTACT, PALE/WARM/DRY; AAOX4, PERRL, WITH EVEN AND STEADY GAIT; LUNGS CLEAR BL, BREATHING UNLABORED; HR EVEN AND REGULAR, BL PERIPHERAL PULSES PRESENT; BS ACTIVE X4, MILD TENDERNESS TO PALPATION. PT DENIES ANY FEVER, CP, SOB, OR COUGH AT THIS TIME; PT STATES 5/10 PAIN AT THIS TIME; VSS; PATIENT POSITIONED FOR COMFORT; HOB ELEVATED; BEDRAILS UP X2; BED DOWN.
--- NOTE | 2018-09-08 14:47 | NUR ---
PT AMBULATED TO RESTROOM AT THIS TIME.
--- NOTE | 2018-09-08 14:56 | NUR ---
Dr. Brasher evaluating patient at bedside.
--- NOTE | 2018-09-08 15:49 | NUR ---
PT LAYING IN BED, C/O 10/10 PAIN IN ABD. AND IS DISTENDED AND FIRM. ER NOTIFIED.
[2018-09-08] MEDS ORDERED: NACL 0.9% 1,000 ML IV ONE (16:10)
[2018-09-08 16:49] LABS: BILIRUBIN,URINE NEGATIVE (NEGATIVE); BLOOD, URINE NEGATIVE (NEGATIVE); COLOR,URINE YELLOW (YELLOW); LEUKOCYTE ESTERASE ,URINE 1+ (NEGATIVE); NITRITE, URINE NEGATIVE (NEGATIVE); PH,URINE 6.5 (5.0-9.0); UGLUCOSE 1+ (NEGATIVE)
[2018-09-08 16:51] LABS: APPEARANCE,URINE HAZY (CLEAR)
[2018-09-08 16:56] LABS: BASOPHILS % (AUTO) 0.1 % (0.0-2.0); EOSINOPHILS # (AUTO) 0.1 K/uL (0-0.4); EOSINOPHILS % (AUTO) 0.3 % (0.0-4.0); HEMATOCRIT 36.3 % (36-52); HEMOGLOBIN 12.5 g/dL (12.0-18.0); LYMPHOCYTES # (AUTO) 1.5 K/uL (2.0-11.5); LYMPHOCYTES % (AUTO) 8.9 % (20.5-51.1); MEAN CORPUSCULAR HEMOGLOBIN 31 pg (27-31); MEAN CORPUSCULAR HGB CONC 34 g/dL (33-37); MEAN CORPUSCULAR VOLUME 89.7 fL (80-94); MONOCYTES # (AUTO) 1.2 K/uL (0.8-1.0); MONOCYTES % (AUTO) 7.3 % (1.7-9.3); NEUTROPHILS # (AUTO) 13.6 K/uL (1.8-7.7); NEUTROPHILS % (AUTO) 83.4 % (42.2-75.2); PLATELET COUNT (AUTO) 252 K/uL (140-450); RED BLOOD CELL COUNT(AUTO) 4.05 MIL/uL (4.20-6.10); RED CELL DISTRIBUTION WIDTH 12.9 % (11.6-13.7); WHITE BLOOD COUNT (AUTO) 16.3 K/uL (4.8-10.8)
[2018-09-08 16:58] LABS: RBC,URINE 0-5 /HPF (0-5)
[2018-09-08 17:11] LABS: ALBUMIN 2.6 g/dL (3.4-5.0); ANION GAP 11.4 (8-16); CARBON DIOXIDE 22.9 mmol/L (21-32); CREATININE 1.2 mg/dL (0.7-1.3); POTASSIUM 3.3 mmol/L (3.5-5.1); TOTAL BILIRUBIN 0.6 mg/dL (0.0-1.0)
[2018-09-08] MEDS ORDERED: NACL 0.9% 1,000 ML IV SCH (17:24)
[2018-09-08] MEDS ORDERED: ONDANSETRON 4 MG/2 ML VIAL IM/IVP PRN (17:25)
[2018-09-08] MEDS ORDERED: PIPERACILLIN/TAZOBACTAM 3.375 GM in DEXTROSE 5% 50 ML IV ONE (17:25)
[2018-09-08] MEDS ORDERED: DOCUSATE SODIUM 100 MG GELCAP PO PRN (17:25)
[2018-09-08] MEDS ORDERED: ACETAMINOPHEN 325 MG TAB PO PRN (17:25)
[2018-09-08] MEDS ORDERED: VANCOMYCIN PER PHARMACY MC PRN (17:25)
[2018-09-08 17:46] LABS: MAGNESIUM 1.4 mg/dL (1.8-2.4); PHOSPHORUS 3.3 mg/dL (2.5-4.9)
[2018-09-08] MEDS ORDERED: PIPERACILLIN/TAZOBACTAM 3.375 GM VIAL IV ONE (17:46)
[2018-09-08 17:49] LABS: BARBITURATE, URINE NEG. ng/ml (NEG <=200); BENZODIAZEPINE, URINE NEG. ng/mL (NEG <=200); CANNABINOID, URINE NEG. ng/mL (NEG <=50); COCAINE, URINE NEG. ng/mL (NEG <=300); OPIATE, URINE NEG. ng/mL (NEG <=2000); PHENCYCLIDINE SCREEN,URINE NEG. ng/mL (NEG <=25)
[2018-09-08 17:55] LABS: PROTHROMBIN TIME 10.6 secs (10.8-13.4)
[2018-09-08] MEDS ORDERED: PIPER/TAZO 3.375GM/D5W PREMIX 50 ML IV ONE (17:55)
--- NOTE | 2018-09-08 18:00 | NUR ---
PATIENT CAME ON THE UNIT VIA GURNEY FROM ED. PATIENT IS AAOX4, ZAMBIAN SPEAKING. RESPIRATIONS ARE EVEN AND UNLABORED ON ROOM AIR. RIGHT UPPER PICC LINE INTACT, PATENT, AND INFUSING IVF. PATIENT C/O OF PAIN TO PELVIC AREA. MD IS AT THE BEDSIDE. PLAN OF CARE WAS REVIEWED WITH PATIENT IN ZAMBIAN. PATIENT VERBALIZED UNDERSTANDING. SAFETY MEASURES IN PLACE, CALL LIGHT WITHIN REACH. WILL CONTINUE TO MONITOR.
--- NOTE | 2018-09-08 18:30 | NUR ---
COREAS CATHETER INSERTED PER DR. WALLACE ORDERED DUE TO BLADDER DISTENTION. 1850 ML URINE OUT AFTER COREAS INSERTION. PATIENT TOLERATED PROCEDURE WELL. WILL CONTINUE TO MONITOR.
[2018-09-08 18:31] VITALS: BP 118/83
[2018-09-08] MEDS ORDERED: DEXTROSE 50% 50 ML SYR IVP PRN (19:10)
[2018-09-08] MEDS ORDERED: DEXT 5% /NACL 0.9% 1,000 ML IV SCH (19:30)
--- NOTE | 2018-09-08 19:30 | NUR ---
GAVE ENDORSEMENT TO BREWING TECHNICIAN NURSE. PATIENT IS STABLE.
--- NOTE | 2018-09-08 19:31 | NUR ---
RECEIVED BEDSIDE REPORT FROM ELIDIA SMITH. PT A/O X4. SPEAKS MALTESE. ABLE TO MAKE NEEDS KNOWN. ROOM AIR. NO SIGNS OF DISTRESS. AMBULATES WITH ASSIST. SKIN INTACT. R UPPER PICC NS @60. PICC INTACT. NPO FOR CT @MIDNIGHT. NKA. CONTACT PRECAUTIONS IN PLACE. FALL PRECAUTIONS IN PLACE. BED IN LOW POSITION. CALL LIGHT WITHIN REACH. AT BEDSIDE.
--- NOTE | 2018-09-08 20:10 | NUR ---
CALLED CT TO INFORM OF PT EATING DINNER DURING DAYSHIFT. PT WILL BE NPO FOR CT @ MIDNIGHT.
[2018-09-08] MEDS ORDERED: POTASSIUM CHLORIDE 40 MEQ, LIDOCAINE MPF 1% - 5 mL VIAL 25 MG in NACL 0.9% 250 ML IV SCH (21:00)
[2018-09-08] MEDS ORDERED: MAG SULF 2000 MG/WATER PREMIX 50 ML IV SCH (21:00)
[2018-09-08] MEDS: BLOOD GLUCOSE MONITORING 1 DEV DEV FS SCH (21:00)
[2018-09-08] MEDS ORDERED: VANCOMYCIN 1,000 MG VIAL ONE (21:53)
[2018-09-08] MEDS: VANCOMYCIN 1GM/DEXT 5% PREMIX 200 ML IV SCH ×2 (21:58→23:00)
--- NOTE | 2018-09-08 22:15 | NUR ---
ADMINISTERED MEDS SCHEDULED. MAG RUNNING @25ML/HR ON SEPARATE LINE. TOLERATED WELL. WILL CONTINUE TO MONITOR. AT BEDSIDE.
[2018-09-08 22:22] LABS: ANION GAP 9.7 (8-16); CARBON DIOXIDE 26.6 mmol/L (21-32); CREATININE 1.4 mg/dL (0.7-1.3); POTASSIUM 3.3 mmol/L (3.5-5.1)
--- NOTE | 2018-09-08 22:50 | NUR ---
CONSENT SIGNED FOR CT ABDOMEN/ PELVIS WITH CONTRAST. AT BEDSIDE.
[2018-09-08] MEDS: INSULIN LISPRO SLIDING SCALE 100 UNITS/ML VIAL SUBQ PRN (23:17)
[2018-09-08] MEDS ORDERED: POTASSIUM CHLORIDE 10 MEQ TABER PO SCH (23:30)
[2018-09-09] VITALS: BP 144/91
--- NOTE | 2018-09-09 | NUR ---
VITALS TAKEN. TOLERATED WELL. NO COMPLAINTS. DENIES PAIN. WILL CONTINUE TO MONITOR.
--- NOTE | 2018-09-09 01:45 | NUR ---
PT PICKED UP FOR CT SCAN. WILL ACCOMPANY DUE TO PICC LINE.
--- NOTE | 2018-09-09 02:00 | NUR ---
PT BACK IN BED FROM CT. NO SIGNS OF DISTRESS OR DISCOMFORT. RECONNECTED TO IV PUMP. INFUSING D5 NS @45ML/HR. AT BEDSIDE. WILL CONTINUE TO MONITOR.
[2018-09-09 02:58] LABS: ANION GAP 11.1 (8-16); CARBON DIOXIDE 24.9 mmol/L (21-32); CREATININE 1.3 mg/dL (0.7-1.3)
[2018-09-09 04:00] VITALS: BP 120/84
--- NOTE | 2018-09-09 04:00 | NUR ---
PT SLEEPING IN BED EASILY AROUSABLE. VITALS TAKEN. TOLERATED WELL. NO COMPLAINTS AT THIS TIME. WILL CONTINUE TO MONITOR. AT BEDSIDE.
--- NOTE | 2018-09-09 05:55 | NUR ---
SPOKE WITH [facility] WILL PUT IN ORDER.
[2018-09-09] MEDS ORDERED: LEVOFLOXACIN 750 MG/D5W PREMIX 150 ML IV SCH (06:30)
[2018-09-09] MEDS: BLOOD GLUCOSE MONITORING 1 DEV DEV FS SCH ×4 (06:37→20:20)
[2018-09-09] MEDS: INSULIN LISPRO SLIDING SCALE 100 UNITS/ML VIAL SUBQ PRN ×3 (06:45→20:23)
[2018-09-09 06:55] LABS: BASOPHILS # (AUTO) 0.1 K/uL (0.00-0.22); BASOPHILS % (AUTO) 0.7 % (0.0-2.0); EOSINOPHILS % (AUTO) 0.1 % (0.0-4.0); HEMATOCRIT 36.7 % (36-52); HEMOGLOBIN 12.6 g/dL (12.0-18.0); LYMPHOCYTES # (AUTO) 1.5 K/uL (2.0-11.5); LYMPHOCYTES % (AUTO) 9.3 % (20.5-51.1); MEAN CORPUSCULAR HEMOGLOBIN 31 pg (27-31); MEAN CORPUSCULAR HGB CONC 35 g/dL (33-37); MEAN CORPUSCULAR VOLUME 90.2 fL (80-94); MONOCYTES # (AUTO) 1.3 K/uL (0.8-1.0); NEUTROPHILS # (AUTO) 12.8 K/uL (1.8-7.7); NEUTROPHILS % (AUTO) 81.9 % (42.2-75.2); PLATELET COUNT (AUTO) 242 K/uL (140-450); RED BLOOD CELL COUNT(AUTO) 4.07 MIL/uL (4.20-6.10); RED CELL DISTRIBUTION WIDTH 13.3 % (11.6-13.7); WHITE BLOOD COUNT (AUTO) 15.7 K/uL (4.8-10.8)
[2018-09-09 07:08] LABS: ANION GAP 10.9 (8-16); CARBON DIOXIDE 26.9 mmol/L (21-32); CREATININE 1.3 mg/dL (0.7-1.3); POTASSIUM 3.8 mmol/L (3.5-5.1)
[2018-09-09 07:12] LABS: MAGNESIUM 2.2 mg/dL (1.8-2.4); PHOSPHORUS 4.7 mg/dL (2.5-4.9)
--- NOTE | 2018-09-09 07:22 | NUR ---
ENDORSED PT TO DAYSHIFT JUDE RACHEL. PT IN STABLE CONDITION.
--- NOTE | 2018-09-09 07:25 | NUR ---
RECEIVED HAND OFF REPORT FROM TENNIS CENTRE MANAGER NURSE. PT IS AWAKE IN BED. FAMILY IS AT BEDSIDE. PT APPEARS STABLE AND IN NO APPARENT DISTRESS, ALL SAFETY MEASURES ARE IN PLACE. WILL CONTINUE TO MONITOR.
--- NOTE | 2018-09-09 08:00 | NUR ---
09/08/18 2300 VANCOMYCIN NOT ADMINISTERED FROM HOUSE DIRECTOR RN. SPOKE WITH OKSANA FROM PHARMACY WAS TOLD TO MAKE NOT THAT WE SPOKE ABOUT HOUSE DIRECTOR RN NOT ADMINISTERING THIS AND THAT HE IS CHANGING THE SCHEDULE.
[2018-09-09 08:05] VITALS: BP 113/78
--- NOTE | 2018-09-09 08:05 | NUR ---
NON ADMINISTER METFORMIN PT IS HAD CT WITH CONTRAST. DISPOSED OF MEDICATION IN THE MEDICATION WASTE.
[2018-09-09] MEDS ORDERED: HYDROCHLOROTHIAZIDE 25 MG TAB PO SCH (09:00)
[2018-09-09] MEDS ORDERED: CLINICAL MONITORING MC SCH (09:00)
[2018-09-09] MEDS: FINASTERIDE 5 MG TAB PO SCH (09:12)
[2018-09-09] MEDS: metFORMIN 500 MG TAB PO SCH ×2 (09:13→17:00)
[2018-09-09] MEDS: amLODIPine 5 MG TAB PO SCH (09:13)
[2018-09-09] MEDS: LOSARTAN 50 MG TAB PO SCH (09:14)
[2018-09-09] MEDS: TAMSULOSIN 0.4 MG CAP PO SCH (09:14)
[2018-09-09] MEDS: LACTOBACILLUS RHAMNOSUS GG 1 EACH CAP PO SCH (09:14)
[2018-09-09] MEDS ORDERED: BISACODYL 5 MG TABEC PO SCH (10:00)
[2018-09-09] MEDS: NACL 0.9% 1,000 ML IV SCH ×2 (10:05→22:24)
--- NOTE | 2018-09-09 10:10 | NUR ---
VANCOMYCIN ADMINISTERED LATE. WAS WAITING FOR IT TO BE PREMIXED BY PHARMACY, WAS BROUGHT AND PLACED IN THE FRIDGE LATE.
[2018-09-09] MEDS: VANCOMYCIN 1GM/DEXT 5% PREMIX 200 ML IV SCH ×2 (11:09→22:00)
--- NOTE | 2018-09-09 11:58 | NUR ---
FINGERSTICK GLUCOSE 215. 4 UNITS HUMALOG ADMINISTERED. PT IS AWAKE AND STABLE PT APPEARS STABLE AND IN NO APPARENT DISTRESS. ALL SAFETY MEASURES ARE IN PLACE WILL CONTINUE TO MONITOR.
[2018-09-09 12:00] VITALS: BP 130/88
[2018-09-09 12:24] LABS: ANION GAP 10.3 (8-16); CARBON DIOXIDE 26.6 mmol/L (21-32); CREATININE 1.3 mg/dL (0.7-1.3); POTASSIUM 3.9 mmol/L (3.5-5.1)
--- NOTE | 2018-09-09 12:27 | NUR ---
FREQUENT ROUNDING ON THE PATIENT THE PATIENT IS STABLE AND IN NO APPARENT DISTRESS. ALL SAFETY MEASURES ARE IN PLACE. WILL CONTINUE TO MONITOR.
--- NOTE | 2018-09-09 12:52 | NUR ---
PATIENT HAS BEEN SCREENED AND CATEGORIZED HIGH NUTRITION RISK. PATIENT WILL BE SEEN WITHIN 1-2 DAYS OF ADMISSION. 09/09/18ZAIRE DAMON MBA, RD
--- NOTE | 2018-09-09 13:11 | NUR ---
C DIFF TOXIN ORDERED. FILLED OUT C DIFF TOXIN WITH CHARGE NURSE ROYAL. PT DOES NOT MEET CRITERIA FOR THIS BECAUSE PATIENT IS CONSTIPATED. SPOKE WITH DR. PRECIADO SHE SAID IT WAS A FORMALITY BECAUSE PT HAS BEEN ON VANCOMYCIN FOR AN EXTENDED AMOUNT OF TIME. C. DIFF TOXIN FORM IS FILLED OUT AND IS IN THE CHART.
--- NOTE | 2018-09-09 14:30 | NUR ---
FINGERSTICK GLUCOSE 150 NO COVERAGE NEEDED
--- NOTE | 2018-09-09 15:41 | NUR ---
09/09/18 RD INITIAL ASSESSMENT COMPLETED PLEASE REFER TO NUTRITION ASSESSMENT UNDER CARE ACTIVITY FOR ESTIMATED NUTRITIONAL NEEDS. RD RECOMMENDATIONS: RECOMMEND CONTINUE 60G CCHO; SUFFICIENT TO MEET ESTIMATED NEEDS. FOLLOW UP 3-5 DAYS; MODERATE RISK ZAIRE DAMON MBA, RD
[2018-09-09 16:00] VITALS: BP 147/86
[2018-09-09 16:21] LABS: ANION GAP 9.9 (8-16); CARBON DIOXIDE 25.9 mmol/L (21-32); CREATININE 1.3 mg/dL (0.7-1.3); POTASSIUM 3.8 mmol/L (3.5-5.1)
--- NOTE | 2018-09-09 16:30 | NUR ---
FREQUENT ROUNDING PT IS STABLE AND IN NO APPARENT DISTRESS. ALL SAFETY MEASURES ARE IN PLACE. WILL CONTINUE TO MONITOR.
--- NOTE | 2018-09-09 19:23 | NUR ---
ENDORSED PT TO SHOWROOM SALESPERSON NURSE. PT IS AWAKE IN BED PT IS STABLE AND IN NO APPARENT DISTRESS ALL SAFETY MEASURES ARE IN PLACE.
--- NOTE | 2018-09-09 19:24 | NUR ---
RECEIVED BEDSIDE REPORT FROM AM SHIFT NURSE. PT A/O X4. SPEAKS TELUGU. WITH AT BEDSIDE. ABLE TO MAKE NEEDS KNOWN. ROOM AIR. NO SIGNS OF DISTRESS. AMBULATES WITH ASSIST. SKIN INTACT. R UPPER, DOUBLE LUMEN PICC RUNNING NS @60. PICC INTACT. CONTACT PRECAUTIONS IN PLACE. FALL PRECAUTIONS IN PLACE. BED IN LOW POSITION. CALL LIGHT WITHIN REACH.
--- NOTE | 2018-09-09 19:25 | NUR ---
PER PREVIOUS SHIFT FOR C-DIFF IN STOOL ONCE W/ STOOL X 3 RESULTS. NO BM AT THIS TIME,
[2018-09-09 20:00] VITALS: BP 148/100
--- NOTE | 2018-09-09 20:20 | NUR ---
BLOOD SUGAR TAKEN, INSULIN GIVEN
[2018-09-09 20:36] LABS: ANION GAP 10.8 (8-16); CARBON DIOXIDE 25.9 mmol/L (21-32); CREATININE 1.2 mg/dL (0.7-1.3); POTASSIUM 3.7 mmol/L (3.5-5.1)
[2018-09-10] VITALS (10 sets, daily range): BP systolic 80–174; BP diastolic 54–102
[2018-09-10 01:08] LABS: ANION GAP 11.9 (8-16); CARBON DIOXIDE 24.6 mmol/L (21-32); CREATININE 1.3 mg/dL (0.7-1.3); POTASSIUM 3.5 mmol/L (3.5-5.1)
--- NOTE | 2018-09-10 04:00 | NUR ---
VITALS SIGNS TAKEN, HIGH BP NOTED WILL RETAKE AGAIN LATER
--- NOTE | 2018-09-10 04:01 | NUR ---
DR. SR INFORMED AND SHE ORDERED TO RETAKE THE BP AFTER AN HOUR.
[2018-09-10 05:37] LABS: ANION GAP 7.5 (8-16); CARBON DIOXIDE 26.1 mmol/L (21-32); CREATININE 1.3 mg/dL (0.7-1.3); POTASSIUM 3.6 mmol/L (3.5-5.1)
[2018-09-10 05:41] LABS: MAGNESIUM 1.7 mg/dL (1.8-2.4); PHOSPHORUS 4.4 mg/dL (2.5-4.9)
[2018-09-10 05:49] LABS: BASOPHILS % (AUTO) 0.3 % (0.0-2.0); EOSINOPHILS # (AUTO) 0.1 K/uL (0-0.4); EOSINOPHILS % (AUTO) 0.7 % (0.0-4.0); HEMATOCRIT 33.3 % (36-52); HEMOGLOBIN 11.4 g/dL (12.0-18.0); LYMPHOCYTES # (AUTO) 1.7 K/uL (2.0-11.5); LYMPHOCYTES % (AUTO) 13.2 % (20.5-51.1); MEAN CORPUSCULAR HEMOGLOBIN 31 pg (27-31); MEAN CORPUSCULAR HGB CONC 34 g/dL (33-37); MEAN CORPUSCULAR VOLUME 91.1 fL (80-94); MONOCYTES # (AUTO) 1.3 K/uL (0.8-1.0); NEUTROPHILS # (AUTO) 9.9 K/uL (1.8-7.7); NEUTROPHILS % (AUTO) 75.8 % (42.2-75.2); PLATELET COUNT (AUTO) 222 K/uL (140-450); RED BLOOD CELL COUNT(AUTO) 3.66 MIL/uL (4.20-6.10); RED CELL DISTRIBUTION WIDTH 12.9 % (11.6-13.7); WHITE BLOOD COUNT (AUTO) 13.1 K/uL (4.8-10.8)
[2018-09-10] MEDS: BLOOD GLUCOSE MONITORING 1 DEV DEV FS SCH ×4 (05:54→20:15)
[2018-09-10] MEDS: INSULIN LISPRO SLIDING SCALE 100 UNITS/ML VIAL SUBQ PRN ×3 (05:57→20:23)
--- NOTE | 2018-09-10 06:00 | NUR ---
NO BM NOTED FOR WHOLE SHIFT WILL ENDORSE C-DIFF OF STOOL COLLECTION ONCE W/ BM
--- NOTE | 2018-09-10 06:13 | NUR ---
HIGH BLOOD PRESSURE NOTED; AT 172/102; HR 94. INFORMED DR. PRECIADO, SHE SAID TO GIVE THE BP AM MEDS NOW
[2018-09-10] MEDS: LOSARTAN 50 MG TAB PO SCH (06:22)
[2018-09-10] MEDS: amLODIPine 5 MG TAB PO SCH (06:22)
--- NOTE | 2018-09-10 07:25 | NUR ---
ENDORSED TO AM SHIFT FOR CONTINUITY OF CARE, MONITOR FOR HIGH BLD PRESSURE.
--- NOTE | 2018-09-10 07:27 | NUR ---
RECEIVED BED SIDE REPORT FROM TILE FINISHER RN. PT IN STABLE CONDITION, ON RA IN NO DISTRESS, SKIN INTACT, PICC LINE R UPPER ARM FLUSHING WELL RUNNING NS AT 100CC/HR, BANDAGE APPLIED, NO BLEEDING NOTED, COREAS CATH IN PLACE, DRAINING CLOUDY URINE WITH SEDIMENTS, PT IN NO PAIN, AT BEDSIDE BOTH GEORGIAN SPEAKING. LAST BM 09/08/18. TILE FINISHER TOOK BP AT 0600 AND LAST BP 168/100. BED IN LOW, CALL LIGHT WITHIN REACH.
[2018-09-10] MEDS: NACL 0.9% 1,000 ML IV SCH ×2 (08:24→18:24)
[2018-09-10] MEDS: metFORMIN 500 MG TAB PO SCH ×2 (09:12→16:51)
[2018-09-10] MEDS: LACTOBACILLUS RHAMNOSUS GG 1 EACH CAP PO SCH (09:12)
[2018-09-10] MEDS: TAMSULOSIN 0.4 MG CAP PO SCH (09:12)
[2018-09-10] MEDS: FINASTERIDE 5 MG TAB PO SCH (09:13)
[2018-09-10 09:24] LABS: ANION GAP 10.7 (8-16); CARBON DIOXIDE 23.9 mmol/L (21-32); CREATININE 1.3 mg/dL (0.7-1.3); POTASSIUM 3.6 mmol/L (3.5-5.1)
[2018-09-10] MEDS ORDERED: BISACODYL 5 MG TABEC PO PRN (09:30)
[2018-09-10] MEDS: LEVOFLOXACIN 500 MG/D5W PREMIX 100 ML IV SCH (09:31)
--- NOTE | 2018-09-10 10:00 | NUR ---
CAME TO ASSESS PT. SAID TO CONTINUE ABX AND TO FOLLOW UP WITH A UROLOGIST OUTPATIENT. AIRCRAFT MOTOR MECHANIC LEVELS STILL PENDING. SAID IN MORNING ROUNDS THAT ONCE AIRCRAFT MOTOR MECHANIC LEVELS COME BACK, POSSIBLE BIOPSY WILL BE DONE ON THE PROSTATE. WILL CONTINUE TO MONITOR
[2018-09-10] MEDS ORDERED: hydrALAZINE 20 MG/ML VIAL IVP PRN (10:20)
[2018-09-10] MEDS ORDERED: BISACODYL 10 MG SUPP RC SCH (10:27)
[2018-09-10] MEDS ORDERED: ZOLPIDEM 5 MG TAB PO SCH (10:48)
[2018-09-10] MEDS: VANCOMYCIN 1GM/DEXT 5% PREMIX 200 ML IV SCH ×2 (10:54→21:34)
--- NOTE | 2018-09-10 10:55 | NUR ---
GAVE PT SUPPOSITORY BISOCODYL D/T CONSTIPATION. LAST BM 09/08/18. WILL CONTINUE TO MONITOR
[2018-09-10] MEDS ORDERED: MAGNESIUM OXIDE 400 MG TAB PO SCH (11:00)
--- NOTE | 2018-09-10 16:20 | NUR ---
ASSESSED PT'S ORTHOSTATIC BP, MADE DR AYALA AWARE THAT PT SHOWS EVIDENCE OF ORTHOSTATIC HYPOTENSION.
--- NOTE | 2018-09-10 19:30 | NUR ---
GAVE BEDSIDE REPORT TO RELAY RECORD CLERK RN. PT IN STABLE CONDITION
--- NOTE | 2018-09-10 19:31 | NUR ---
RECEIVED BEDSIDE REPORT FROM AM SHIFT NURSE. PT A/O X4. SPEAKS YEMENI. WITH AT BEDSIDE. ABLE TO MAKE NEEDS KNOWN. ROOM AIR. NO SIGNS OF DISTRESS. AMBULATES WITH ASSIST. SKIN INTACT. R UPPER, DOUBLE LUMEN PICC RUNNING NS @60. PICC INTACT. CONTACT PRECAUTIONS IN PLACE. FALL PRECAUTIONS IN PLACE. BED IN LOW POSITION. CALL LIGHT WITHIN REACH. Addendum: 09/10/18 at 2340 by Kierra Bhatti RN AMEND NS RUNNING AT 100ML/HR VIA PICC LINE ( DELETE RATE OF 60)
--- NOTE | 2018-09-10 22:18 | NUR ---
PT SLEEPING AT THIS TIME, COMFORTABLE NO COMPLAINTS AT THIS TIME.
--- NOTE | 2018-09-10 22:24 | NUR ---
PT BS 209 W/ 4 UNITS OF HUMALOG GIVEN, GIVEN DIABETIC SNACKS Addendum: 09/10/18 at 2338 by Kierra Bhatti RN AMEND TIME TO 2022-GIVEN HUMALOG INSULIN .
[2018-09-11] MEDS: ZOLPIDEM 5 MG TAB PO PRN ×2 (00:41→21:59)
--- NOTE | 2018-09-11 00:41 | NUR ---
PT C/O OF INSOMNIA WILL MEDICATE W/ AMBIEN PRN
--- NOTE | 2018-09-11 01:25 | NUR ---
DRAINED 2000 ML IN THE F/C. PT SLEEPING AT THIS TIME, COMFORTABLE AND NO COMPLAINTS AT THIS TIME.
[2018-09-11 04:00] VITALS: BP 170/100
[2018-09-11] MEDS: NACL 0.9% 1,000 ML IV SCH ×3 (04:24→23:19)
--- NOTE | 2018-09-11 04:41 | NUR ---
REASSESSMENT OF BP AFTER HYDRALAZINE 136/68, HR 98.
[2018-09-11 04:54] VITALS: BP 136/68
[2018-09-11] MEDS: BLOOD GLUCOSE MONITORING 1 DEV DEV FS SCH ×4 (05:16→21:03)
[2018-09-11 06:32] LABS: BASOPHILS # (AUTO) 0.1 K/uL (0.00-0.22); BASOPHILS % (AUTO) 0.5 % (0.0-2.0); EOSINOPHILS # (AUTO) 0.2 K/uL (0-0.4); EOSINOPHILS % (AUTO) 1.2 % (0.0-4.0); HEMATOCRIT 33.7 % (36-52); HEMOGLOBIN 11.5 g/dL (12.0-18.0); LYMPHOCYTES # (AUTO) 1.5 K/uL (2.0-11.5); LYMPHOCYTES % (AUTO) 10.9 % (20.5-51.1); MEAN CORPUSCULAR HEMOGLOBIN 31 pg (27-31); MEAN CORPUSCULAR HGB CONC 34 g/dL (33-37); MONOCYTES # (AUTO) 1.3 K/uL (0.8-1.0); MONOCYTES % (AUTO) 9.7 % (1.7-9.3); NEUTROPHILS # (AUTO) 10.5 K/uL (1.8-7.7); NEUTROPHILS % (AUTO) 77.7 % (42.2-75.2); PLATELET COUNT (AUTO) 190 K/uL (140-450); RED BLOOD CELL COUNT(AUTO) 3.71 MIL/uL (4.20-6.10); RED CELL DISTRIBUTION WIDTH 12.6 % (11.6-13.7); WHITE BLOOD COUNT (AUTO) 13.5 K/uL (4.8-10.8)
[2018-09-11 06:57] LABS: ANION GAP 8.9 (8-16); CARBON DIOXIDE 26.3 mmol/L (21-32); CREATININE 1.1 mg/dL (0.7-1.3); POTASSIUM 3.2 mmol/L (3.5-5.1)
[2018-09-11 07:06] LABS: MAGNESIUM 1.5 mg/dL (1.8-2.4); PHOSPHORUS 3.9 mg/dL (2.5-4.9)
--- NOTE | 2018-09-11 07:18 | NUR ---
ENDORSED TO NEXT SHIFT FOR CONTINUITY OF CARE, PT ASLEEP , BUT CAN BE EASILY AROUSED BY NAME. PT IN STABLE CONDITION AT THIS TIME
--- NOTE | 2018-09-11 07:19 | NUR ---
RECEIVED BEDSIDE REPORT FROM NIGHT NURSE. PT IS CURRENTLY RESTING IN BED BREATHING SYMMETRICAL AND UNLABORED. PT HAS RIGHT UPPER ARM PICC LINE INFUSING NORMAL SALINE AT 100ML/HR. PT STAT LOCK IS IN UNCOMFORTABLE SPOT ACCORDING TO PT. MOVED STAT LOCK TO ANOTHER SPOT ON LEG PER PATIENT GUIDANCE. COREAS INTACT ALL LINES FOLLOWED TO ORIGIN WITH CLEAR YELLOW URINE DRAINING INTO COLLECTION BAG. ALL SAFETY MEASURES IN PLACE WITH CALL LIGHT WITHIN REACH AND POC DISCUSSED AT BEDSIDE. Addendum: 09/11/18 at 1021 by Eric Akins RN PT IS AOX4
--- NOTE | 2018-09-11 07:40 | NUR ---
NOTIFIED DR. SALINAS OF PATIENT DECREASED BLOOD POTASSIUM READING. NO FURTHER INSTRUCTIONS OR ORDERS AT THIS TIME.
[2018-09-11 08:00] VITALS: BP 139/89
--- NOTE | 2018-09-11 08:22 | NUR ---
PT IS FREE OF OBVIOUS SIGNS OF DISTRESS RESTING IN BED WITH BREATHING EQUAL AND UNLABORED. FAMILY PRESENT AT BEDSIDE.
[2018-09-11] MEDS: LACTOBACILLUS RHAMNOSUS GG 1 EACH CAP PO SCH (08:50)
[2018-09-11] MEDS: amLODIPine 5 MG TAB PO SCH (08:51)
[2018-09-11] MEDS: metFORMIN 500 MG TAB PO SCH ×2 (08:51→18:07)
[2018-09-11] MEDS: LOSARTAN 50 MG TAB PO SCH (08:51)
[2018-09-11] MEDS: FINASTERIDE 5 MG TAB PO SCH (08:51)
[2018-09-11] MEDS: TAMSULOSIN 0.4 MG CAP PO SCH (08:51)
[2018-09-11] MEDS: LEVOFLOXACIN 500 MG/D5W PREMIX 100 ML IV SCH (08:58)
--- NOTE | 2018-09-11 10:01 | NUR ---
ASSISTED PATIENT WITH COREAS CARE. PT WANTED STATLOCK REPLACED AND READJUSTED. PT ALSO HAD THICK WHITE DRAINAGE AT SITE OF [facility]. SWAB TAKEN WILL ASK MD FOR FURTHER ORDERS.
--- NOTE | 2018-09-11 10:04 | NUR ---
NOTIFIED DR. SALINAS OF [facility] DISCHARGE AND SWAB TAKEN AND IF HE WANTED THE SWAB SENT TO LAB. HE STATED HE WOULD PUT IN ORDERS FOR FURTHER INSTRUCTIONS.
--- NOTE | 2018-09-11 10:10 | NUR ---
RECEIVED CALL FROM JUVENAL IN PHARMACY THAT VANCOMYCIN IS DISCONTINUED AND NOT TO ADMINISTER IT. Addendum: 09/11/18 at 1105 by Eric Akins RN SPOKE WITH JUVEANL AT 1104 IN PHARMACY. SHE INFORMED ME SHE WANTS ME TO CONTINUE THE VANCOMYCIN AND INTENDED ME TO ALWAYS CONTINUE ADMINISTERING AND THAT IT WAS A MISUNDERSTANDING REGARDING NOT ADMINISTERING
[2018-09-11] MEDS ORDERED: MAGNESIUM OXIDE 400 MG TAB PO SCH (10:35)
[2018-09-11] MEDS ORDERED: POTASSIUM CHLORIDE 10 MEQ TABER PO SCH (10:45)
--- NOTE | 2018-09-11 11:01 | NUR ---
NOTIFIED DR SLAINAS REGARDING PHARMACY NOTIFICATION TO DISCONTINUE VANCOMYCIN. HE STATED THAT THE MEDICATION IS STILL ACTIVELY ADMINISTERED. INFORMED HIM I WILL CALL PHARMACY FOR CLARIFICATION.
[2018-09-11] MEDS: VANCOMYCIN 1GM/DEXT 5% PREMIX 200 ML IV SCH ×2 (11:12→21:59)
[2018-09-11] MEDS: INSULIN LISPRO SLIDING SCALE 100 UNITS/ML VIAL SUBQ PRN ×2 (11:54→20:43)
[2018-09-11 12:00] VITALS: BP 153/100
--- NOTE | 2018-09-11 12:15 | NUR ---
PT RESTING IN BED WITH FAMILY AT BEDSIDE. NO OBVIOUS SIGNS OF DISTRESS BREATHING SYMMETRICAL AND UNLABORED.
--- NOTE | 2018-09-11 13:51 | NUR ---
CHANGED RIGHT UPPER ARM PICC LINE DRESSING DUE TO PRIOR DRESSING PEELING OFF. CHANGED DRESSING USING STERILE TECHNIQUE AND APPLIED BIOPATCH. PT TOLERATED WELL AND IS FREE OF OBVIOUS SIGNS OF DISTRESS AT THIS TIME.
--- NOTE | 2018-09-11 14:50 | NUR ---
PT IS CURRENTLY RETURNING TO BED AFTER AMBULATING TO RESTROOM. PT STATES HE WAS ATTEMPTING TO HAVE A BOWEL MOVEMENT, BUT WAS UNABLE TO GO AT THIS TIME. PT HAS NO OBVIOUS SIGNS OF DISTRESS AND HAS A STEADY GAIT AMBULATING BACK TO BED INDEPENDENTLY. BREATHING IS SYMMETRICAL AND UNLABORED.
[2018-09-11 16:00] VITALS: BP 143/89
--- NOTE | 2018-09-11 17:10 | NUR ---
PT RESTING IN BED NO OBVIOUS SIGNS OF DISTRESS.
--- NOTE | 2018-09-11 19:00 | NUR ---
GAVE BEDSIDE REPORT TO NIGHT NURSE. PATIENT IN STABLE CONDITION
--- NOTE | 2018-09-11 19:10 | NUR ---
RECEIVED REPORT FROM DAY SHIFT NURSE. PT LYING IN BED, AAOX4. NO C/O PAIN OR SOB. ON ROOM AIR. SKIN INTACT. PT HAS PICC LINE TO RIGHT UPPER ARM, PATENT AND INTACT. COREAS CATH IN PLACE DRAINING CLEAR YELLOW URINE. FAMILY MEMBER AT BEDSIDE. REMINDED PT TO COLLECT BM FOR C-DIFF TEST. DISCUSSED PLAN OF CARE, PT VERBALIZED UNDERSTANDING. SAFETY PRECAUTION IN PLACE. CALL LIGHT WITHIN REACH.
[2018-09-11 20:00] VITALS: BP 145/86
--- NOTE | 2018-09-11 21:00 | NUR ---
BLOOD SUGAR CHECKED 192. HUMALOG 2 UNITS GIVEN SUBQ. PT TOLERATED WELL.
--- NOTE | 2018-09-11 22:00 | NUR ---
PT C/O UNABLE TO SLEEP. AMBIEN 5 MG PO GIVEN.
[2018-09-12] VITALS: BP 111/70
--- NOTE | 2018-09-12 00:30 | NUR ---
PT SLEEPING BUT EASILY AROUSABLE. NO S/S OF RESP DISTRESS. NO S/S OF PAIN OR DISCOMFORT.
--- NOTE | 2018-09-12 02:45 | NUR ---
PT SLEEPING. RESP EVEN AND UNLABORED. NO S/S OF PAIN. IVF INFUSING WELL.
[2018-09-12 04:00] VITALS: BP 107/72
--- NOTE | 2018-09-12 04:45 | NUR ---
PT SLEEPING BUT WAKES EASILY. NO S/S OF RESP DISTRESS. COREAS CATH DRAINING LIGHT YELLOW URINE. PT HAD NO BM FOR C-DIFF TEST.
[2018-09-12] MEDS: BLOOD GLUCOSE MONITORING 1 DEV DEV FS SCH ×2 (06:02→12:11)
--- NOTE | 2018-09-12 06:05 | NUR ---
PT'S BLOOD SUGAR 139. NO INSULIN COVERAGE.
--- NOTE | 2018-09-12 07:05 | NUR ---
ENDORSED PT TO DAY SHIFT NURSE. PT IN STABLE CONDITION.
--- NOTE | 2018-09-12 07:06 | NUR ---
RECEIVED BEDSIDE REPORT FROM NIGHT NURSE. PT BREATHING SYMMETRICAL AND UNLABORED AOX4. NO COMPLAINTS OF PAIN, ALL LINES INCLUDING COREAS TRACED TO ORIGIN. COREAS CATHETER BAG DRAINING CLEAR YELLOW DRAINAGE. ALL SAFETY MEASURES IN PLACE WITH CALL LIGHT WITHIN REACH. RIGHT PICC LINE DOUBLE LUMEN PATENT AND ASYMPTOMATIC INFUSING 100ML/HR NORMAL SALINE.
[2018-09-12 07:51] LABS: BASOPHILS # (AUTO) 0.1 K/uL (0.00-0.22); BASOPHILS % (AUTO) 0.4 % (0.0-2.0); EOSINOPHILS # (AUTO) 0.2 K/uL (0-0.4); EOSINOPHILS % (AUTO) 1.6 % (0.0-4.0); HEMATOCRIT 34.4 % (36-52); HEMOGLOBIN 11.7 g/dL (12.0-18.0); LYMPHOCYTES # (AUTO) 1.4 K/uL (2.0-11.5); MEAN CORPUSCULAR HEMOGLOBIN 31 pg (27-31); MEAN CORPUSCULAR HGB CONC 34 g/dL (33-37); MEAN CORPUSCULAR VOLUME 91.1 fL (80-94); MONOCYTES # (AUTO) 1.2 K/uL (0.8-1.0); MONOCYTES % (AUTO) 10.1 % (1.7-9.3); NEUTROPHILS # (AUTO) 8.9 K/uL (1.8-7.7); NEUTROPHILS % (AUTO) 75.9 % (42.2-75.2); PLATELET COUNT (AUTO) 198 K/uL (140-450); RED BLOOD CELL COUNT(AUTO) 3.78 MIL/uL (4.20-6.10); RED CELL DISTRIBUTION WIDTH 12.9 % (11.6-13.7); WHITE BLOOD COUNT (AUTO) 11.7 K/uL (4.8-10.8)
[2018-09-12 08:00] VITALS: BP 151/102
[2018-09-12 08:12] LABS: ANION GAP 11.7 (8-16); CARBON DIOXIDE 25.1 mmol/L (21-32); CREATININE 1.1 mg/dL (0.7-1.3); POTASSIUM 3.8 mmol/L (3.5-5.1)
[2018-09-12 08:21] LABS: MAGNESIUM 1.7 mg/dL (1.8-2.4); PHOSPHORUS 3.6 mg/dL (2.5-4.9)
[2018-09-12] MEDS: amLODIPine 5 MG TAB PO SCH (08:54)
[2018-09-12] MEDS: FINASTERIDE 5 MG TAB PO SCH (08:54)
[2018-09-12] MEDS: LOSARTAN 50 MG TAB PO SCH (08:54)
[2018-09-12] MEDS: LACTOBACILLUS RHAMNOSUS GG 1 EACH CAP PO SCH (08:54)
[2018-09-12] MEDS: NACL 0.9% 1,000 ML IV SCH (08:55)
[2018-09-12] MEDS: TAMSULOSIN 0.4 MG CAP PO SCH (08:55)
[2018-09-12] MEDS: metFORMIN 500 MG TAB PO SCH ×2 (08:55→16:38)
[2018-09-12] MEDS ORDERED: FLUCONAZOLE 100 MG TAB PO SCH (09:00)
--- NOTE | 2018-09-12 09:00 | NUR ---
ADMINISTERED MEDICATIONS ORDERED AND REVIEWED INDICATION WITH FAMILY AT BEDSIDE. PT HAS NO REQUESTS OTHER THEN A HEATED BLANKET I OBTAINED FOR HIM. PT HAS NO OTHER REQUESTS AND IS FREE OF SIGNS OF OBVIOUS DISTRESS.
[2018-09-12] MEDS: LEVOFLOXACIN 500 MG/D5W PREMIX 100 ML IV SCH (09:07)
[2018-09-12] MEDS: VANCOMYCIN 1GM/DEXT 5% PREMIX 200 ML IV SCH (10:49)
--- NOTE | 2018-09-12 10:51 | NUR ---
ADMINISTERED MEDICATION. PT WAS ATTEMPTING TO GO TO BATHROOM WHEN FIRST ENTERING THE ROOM STATING HE WAS UNABLE TO HAVE A BOWEL MOVEMENT AT THIS TIME. PT HAS NO OBVIOUS SIGNS OF DISTRESS AND IS AMBULATING INDEPENDENTLY.
--- NOTE | 2018-09-12 10:55 | NUR ---
SPOKE WITH DR AYALA REGARDING PATIENT CONSTIPATION AND ASKED FOR CLARIFICATION ON BISACODYL AND COLACE PRN FOR STATING THAT THEY ARE TO BE GIVEN FOR CONSTIPATION WITH NO OTHER DEFINING PARAMETERS. SHE INFORMED ME TO GIVE BOTH MEDICATIONS AT THIS TIME WHICH I DID.
[2018-09-12 12:00] VITALS: BP 139/89
[2018-09-12] MEDS: INSULIN LISPRO SLIDING SCALE 100 UNITS/ML VIAL SUBQ PRN (12:10)
--- NOTE | 2018-09-12 12:58 | NUR ---
Stull Hewer Note: I called and spoke with Luma from [facility] ([facility]) office , per Luma first available appointment is on October 12, 2018 at 3:45pm. [facility]. Per , it is okay to schedule appointment for 10/12/18, I made appointment. Addendum: 09/12/18 at 1306 by Roxanne DOYLE office address [address] [place] [id number] Addendum: 09/12/18 at 1307 by Roxanne Smith I met with patient at bedside. Patient speaks Kyrgyz. I provided him with urologist appt information, including date, time, phone number, and address.
[2018-09-12] MEDS ORDERED: LACT1CAP63 PO (13:31)
[2018-09-12] MEDS ORDERED: SULF-58 PO (13:31)
[2018-09-12] MEDS ORDERED: CIPR250T3 PO (13:31)
[2018-09-12] MEDS ORDERED: TAMS0.4C96 PO (13:31)
--- NOTE | 2018-09-12 14:20 | NUR ---
SPOKE WITH DR. SALINAS REGARDING PATIENT CONCERNS THAT HE STILL HAS NOT HAD A BOWEL MOVEMENT AND CONFIRMED PT IS TO DISCHARGE WITH COREAS AND FOLLOW UP WITH UROLOGIST. MD STATES HE WILL PROVIDE FURTHER ORDERS FOR PICC LINE WELL CONSTIPATION.
[2018-09-12] MEDS ORDERED: SODIUM PHOSPHATE 118 ML ENEM RC SCH (14:30)
--- NOTE | 2018-09-12 14:45 | NUR ---
ADMINISTERED FLEET ENEMA TO PT. PT REQUESTS HAVING SOME TIME ON THE TOILET BY HIMSELF BUT STATES HE HAS NOT GONE YET BUT WISHES TO HAVE SOME TIME THERE ALONE.
[2018-09-12] MEDS ORDERED: MAGNESIUM OXIDE 400 MG TAB PO SCH (15:49)
[2018-09-12 16:00] VITALS: BP 163/99
--- NOTE | 2018-09-12 17:08 | NUR ---
REMOVED PATIENT PICC LINE, NO BLEEDING WITH GAUZE AND TEGEDERM DRESSING IN PLACE WITH NO BLEEDING FROM SITE AT ANY TIME DURING OR AFTER REMOVAL UP TO THIS POINT IN TIME. CATHETER TIP INTACT, HAD PATIENT TURN HEAD AND HOLD BREATH. TOLERATED WELL. ALSO CHANGED COREAS COLLECTION BAG TO LEG BAG PER PT REQUEST. WENT OVER ALL DISCHARGE INSTRUCTIONS WITH PT AND FAMILY () AND ANSWERED ALL QUESTIONS. DR. SALINAS ALSO CAME BY BEDSIDE AND DISCUSSED DISCHARGE INSTRUCTIONS WITH FOLLOW UP WELL. PT IS IN STABLE CONDITION WITH NO OBVIOUS SIGNS OF DISTRESS AT THIS TIME.
--- NOTE | 2018-09-12 17:31 | NUR ---
REMOVED PT ID BANDS, AND TRANSPORTED PT VIA WHEELCHAIR OUT OF HOSPITAL AND ASSISTED HIM INTO CAR OF HIS WHO IS DRIVING HIM HOME REPORTEDLY. PT IS IN STABLE CONDITION WITH NO COMPLAINTS, BREATHING SYMMETRICAL AND UNLABORED, AND NO OBVIOUS SIGNS OF DISTRESS. PT HAS ALL BELONGINGS WITH HIM AND APPEARS IN POSITIVE AFFECT AT TIME OF DEPARTURE.
[2018-09-13 18:40] LABS: CHLAMYDIA TRACHOMATIS AMP DNA NEGATIVE (NEGATIVE)
== END 2018-09-12 17:10 | disposition home or self-care (01) | DRG 720 ==
LOC: MED 12:50 → MTU 17:24
PROVIDERS: ADMIT General Practice; ATTEND General Practice
PROC: 02HV33Z Insertion of Infusion Device into Superior Vena Cava, Percutaneous Approach (ICD-10-PCS; principal; 2018-09-08)
PROC: B548ZZA Ultrasonography of Superior Vena Cava, Guidance (ICD-10-PCS; 2018-09-08)
DX: A41.02 Sepsis due to Methicillin resistant Staphylococcus aureus (principal); E43 Unspecified severe protein-calorie malnutrition; D68.59 Other primary thrombophilia; E87.1 Hypo-osmolality and hyponatremia; E83.42 Hypomagnesemia; N39.0 Urinary tract infection, site not specified; R33.8 Other retention of urine; N41.9 Inflammatory disease of prostate, unspecified; E86.0 Dehydration; I16.0 Hypertensive urgency; D49.59 Neoplasm of unspecified behavior of other genitourinary organ; N40.1 Benign prostatic hyperplasia with lower urinary tract symptoms; K59.00 Constipation, unspecified; R19.7 Diarrhea, unspecified; E05.80 Other thyrotoxicosis without thyrotoxic crisis or storm; E11.9 Type 2 diabetes mellitus without complications; I10 Essential (primary) hypertension; E87.6 Hypokalemia; Z68.29 Body mass index [BMI] 29.0-29.9, adult; Z86.14 Personal history of Methicillin resistant Staphylococcus aureus infection; Z79.899 Other long term (current) drug therapy; Z91.19 Patient's noncompliance with other medical treatment and regimen
CPT/HCPCS: 36415; 71045; 80048; 80053; 80202; 80305; 81001; 82948; 83605; 83735; 83880; 84100; 84134; 84154; 85025; 85610; 85730; 87040; 87070; 87081; 87086; 87186; 87491; 93005; 93880; 96361; 96374; 99291; J0360; J1644; J1815; J1956; J2001; J2543; J3370; J3475; J3480; J7030; J7042; J7060; Q0092; Q9967